=== PATIENT | female | born 1955 | race Caucasian/White ===

== ENCOUNTER 2020-07-28 14:38 | Outpatient (REF) | payer OTHER, SELFPAY ==
--- NOTE | 2020-07-28 14:44 | XR_ITS ---
EXAMINATION: XR CHEST CLINICAL INFORMATION: R06.02 - Shortness of breath COMPARISON: None TECHNIQUE: 2 views of the chest were obtained. FINDINGS: There is coarsening of the bronchovascular markings. Subtle groundglass opacities are suspected right suprahilar region. There is no lobar or segmental airspace consolidation or effusion. The heart is normal in size. The hilar and mediastinal contours are normal. There are degenerative changes thoracic spine. Results discussed with Dr. Gayle at 1500 hours. XR/XR chest 2V IMPRESSION: 1. Coarsening bronchovascular markings with suspicion of right suprahilar groundglass opacities. Findings may be related to early atypical pneumonia or viral process. 2. No lobar or segmental airspace consolidation or effusion.
== END 2020-07-28 14:39 | disposition home or self-care (01) ==
LOC: HO.HMGCX 14:38
PROVIDERS: PCP Internal Medicine; Visit Provider Hospitalist
DX: R06.02 Shortness of breath (principal)
CPT/HCPCS: 71046

== ENCOUNTER 2020-11-10 10:00 | Outpatient (REF) | payer OTHER, SELFPAY ==
[2020-11-10 11:57] LABS: Hematocrit 42.6 % (37-47); Hemoglobin 14.1 g/dl (12.0-16.0); Mean Corpuscular HGB Conc 33.1 g/dl (31.0-35.0); Mean Corpuscular Hemoglobin 29.8 pg (27.0-33.0); Mean Corpuscular Volume 90.1 fL (80-98); Mean Platelet Volume 8.9 fL (9.4-12.3); Platelet Count 217 X10*3/uL (160-400); Red Blood Count 4.73 X10*6/uL (4.20-5.50); Red Cell Distribution Width 12.4 % (11.0-16.0); White Blood Count 5.1 X10*3/uL (4.8-10.8)
[2020-11-10 12:10] LABS: Glucose Urine UA NEG (NEG); Leukocyte Esterase Urine NEG (NEG); Nitrite Urine NEG (NEG); PH 7.5 (5.0-8.0); Urine Blood NEG (NEG); Urine Ketones NEG (NEG); Urine Protein NEG (NEG-TRACE)
[2020-11-10 12:18] LABS: Appearance Urine CLEAR; Color Urine YELLOW
[2020-11-10 12:20] LABS: Alanine Aminotransferase 19 U/L (0-31); Albumin Level 4.2 g/dL (3.5-5.0); Alkaline Phosphatase 81 U/L (39-117); Anion Gap 9 (12-20); Aspartate Amino Transferase 20 U/L (5-31); Bilirubin Total 0.7 mg/dL (0.0-1.0); Blood Urea Nitrogen 16 mg/dL (9-16); Calcium 8.9 mg/dL (8.4-10.2); Carbon Dioxide 30 mmol/L (22-29); Chloride 106 mmol/L (96-108); Cholesterol 225 mg/dL; Estimated Glomerular Filt Rate > 60; Glucose Fasting 96 mg/dL (60-99); HDL Cholesterol 68 mg/dL; LDL Cholesterol Calculated 134 mg/dl; Sodium 141 mmol/L (135-145); Total Protein 6.8 g/dL (6.5-8.0); Triglycerides 118 mg/dL
[2020-11-10 13:52] LABS: TSH reflex Free T4 1.46 uIU/mL (0.32-4.0)
[2020-11-10 14:19] LABS: RBC Urine 0 /HPF (0); WBC Urine 0-2 /HPF (0-4)
== END 2020-11-10 10:01 | disposition home or self-care (01) ==
LOC: HO.HMGCLDS 10:00
PROVIDERS: PCP Internal Medicine; Visit Provider Internal Medicine
DX: Z00.00 Encounter for general adult medical examination without abnormal findings (principal); J18.9 Pneumonia, unspecified organism; I10 Essential (primary) hypertension
CPT/HCPCS: 36415; 80053; 80061; 81001; 84443; 85027

== ENCOUNTER 2022-06-08 14:29 | Outpatient (REF) | payer OTHER, SELFPAY ==
[2022-06-08 16:14] LABS: Influenza A PCR NEGATIVE (Negative); Influenza B PCR NEGATIVE (Negative); Resp Syncy Virus RNA Qual PCR NEGATIVE (Negative); SARS COV2 PCR INHOUSE NEGATIVE (Negative)
== END 2022-06-08 14:30 | disposition home or self-care (01) ==
LOC: HO.LAB 14:29
PROVIDERS: Visit Provider Nurse Practitioner Acute Care
DX: R68.89 Other general symptoms and signs (principal); Z20.822 Contact with and (suspected) exposure to COVID-19
CPT/HCPCS: 0241U

== ENCOUNTER 2022-06-11 16:20 | Outpatient (REF) | payer OTHER, SELFPAY ==
--- NOTE | ~2022-06-11 | XR_ITS ---
EXAMINATION: XR CHEST CLINICAL INFORMATION: Cough. COMPARISON: 07/28/2020 TECHNIQUE: 2 views of the chest were obtained. FINDINGS: The lungs are well expanded. There is no focal consolidation, edema, or effusion. No pneumothorax. The cardiomediastinal silhouette is within normal limits. No acute osseous abnormality. XR/XR chest 2V IMPRESSION: Clear lungs.
== END 2022-06-11 16:21 | disposition home or self-care (01) ==
LOC: HO.HMGCX 16:20
PROVIDERS: PCP Internal Medicine; Visit Provider Internal Medicine
DX: R05.9 Cough, unspecified (principal)
CPT/HCPCS: 71046

== ENCOUNTER 2022-06-29 09:29 | Outpatient (REF) | payer OTHER, SELFPAY ==
[2022-06-29 11:10] LABS: MANUAL DIFF FLAG NO
[2022-06-29 11:19] LABS: Basophils Percent Auto 0.9 % (0-2); Eosinophils Absolute Auto 0.2 X10*3/uL (0.0-0.4); Eosinophils Percent Auto 3.4 % (0-4); Hematocrit 41.4 % (37.0-47.0); Hemoglobin 14.2 g/dl (12.0-16.0); Imm Gran Abs Auto 0.02 X10*3/uL (0.00-0.03); Imm Gran Pct Auto 0.5 % (0.0-0.4); Lymphocytes Percent Auto 46.2 % (20-40); Mean Corpuscular HGB Conc 34.3 g/dl (31.0-35.0); Mean Corpuscular Hemoglobin 30.9 pg (27.0-33.0); Mean Corpuscular Volume 90.2 fL (80.0-98.0); Mean Platelet Volume 8.8 fL (9.4-12.3); Monocytes Absolute Auto 0.4 X10*3/uL (0.1-1.2); Monocytes Percent Auto 8.2 % (2-11); Neutrophils Absolute Auto 1.8 x10*3/uL (2.0-8.3); Neutrophils Percent Auto 40.8 % (45-73); Platelet Count 212 X10*3/uL (160-400); Red Blood Count 4.59 X10*6/uL (4.20-5.50); Red Cell Distribution Width 11.7 % (11.0-16.0); White Blood Count 4.4 X10*3/uL (4.8-10.8)
[2022-06-29 11:37] LABS: Appearance Urine Clear; Color Urine Yellow; Glucose Urine UA Negative (Negative); Leukocyte Esterase Urine Trace (Negative); Nitrite Urine Negative (Negative); PH 8.5 (5.0-9.0); Specific Gravity - Urine 1.015 (1.005-1.025); UMIC TRIGGER UA YES; Urine Blood Negative (Negative); Urine Ketones Negative (Negative); Urine Protein Negative (Neg-Trace)
[2022-06-29 11:38] LABS: Alanine Aminotransferase 21 U/L (0-31); Albumin Level 4.3 g/dL (3.5-5.0); Alkaline Phosphatase 77 U/L (39-117); Anion Gap 14 (12-20); Aspartate Amino Transferase 21 U/L (5-31); Bilirubin Total 0.8 mg/dL (0.0-1.0); Blood Urea Nitrogen 15 mg/dL (9-16); Calcium 9.3 mg/dL (8.4-10.2); Carbon Dioxide 25 mmol/L (22-29); Chloride 107 mmol/L (96-108); Cholesterol 226 mg/dL; Estimated Glomerular Filt Rate > 60; Glucose Fasting 103 mg/dL (60-99); HDL Cholesterol 62 mg/dL; LDL Cholesterol Calculated 145 mg/dl; Potassium 4.1 mmol/L (3.3-5.1); Sodium 142 mmol/L (135-145); Total Protein 6.8 g/dL (6.5-8.0); Triglycerides 97 mg/dL
[2022-06-29 11:42] LABS: Bacteria Urine None Seen (None Seen); Hyaline Casts Urine 0-2 /LPF (0-2); RBC Urine 0-2 /HPF (0-2); Squamous Epithelial Cell Urine 0-2 /HPF (0-2); WBC Urine 0-5 /HPF (0-5)
[2022-06-29 11:59] LABS: TSH reflex Free T4 1.85 uIU/mL (0.32-4.0)
[2022-07-01 05:11] LABS: HBS Num1 23.07 mIU/mL (0-7.99); HBsAGNum1 0.18 S/CO (0.00-0.99); Hepatitis B Core Antibody Nonreactive (Nonreactive); Hepatitis B Surface Antigen Negative (Negative); ~Hepatitis B Surface Antibody REACTIVE (Nonreactive)
[2022-07-01 14:12] LABS: Alpha Fetoprotein 1.8 ng/mL
[2022-07-02 21:48] LABS: Hepatitis BE Antibody NON-REACTIVE (NON-REACTIVE)
[2022-07-03 21:07] LABS: Hepatitis B Viral DNA Qn - cp <1.00 NOT DETECTED Log IU/mL (NOT DETECTED); Hepatitis B Viral DNA Qn-IU/mL <10 NOT DETECTED IU/mL (NOT DETECTED)
== END 2022-06-29 09:30 | disposition home or self-care (01) ==
LOC: HO.HMGCLDS 09:29
PROVIDERS: PCP Internal Medicine; Visit Provider Internal Medicine
DX: Z00.00 Encounter for general adult medical examination without abnormal findings (principal); I10 Essential (primary) hypertension
CPT/HCPCS: 36415; 80053; 80061; 81001; 82105; 84443; 85025; 86704; 86706; 86707; 87340; 87517

== ENCOUNTER 2023-05-14 12:45 | Outpatient (AMB) | payer OTHER, SELFPAY ==
[2023-05-14 12:49] VITALS: BP 132/74; PULSE 81; O2SAT 98; BMI 30.7
--- NOTE | 2023-05-14 12:49 | A.OFFPC_ITS ---
Vital Signs 05/14/23 12:49 Height 5 ft 6 in Weight 190 lb BMI 30.7 BP 132/74 Blood Pressure Location Lt brachial Position Sitting Pulse 81 Pulse Source Pulse Oximeter Pulse Oximetry (%) 98 Oxygen Delivery Method Room Air Intake Visit Reasons: Elevated BP Intake Note: Pt is here today for a follow up after being seen in a walk in clinic after a fall at work.Pt states that right after a fall her BP was 171/94. Pt states that her BP has been elevated. Pt also c/o headaches. Allergies No Known Allergies Allergy (Verified 05/14/23 12:50) Medication List - Last Reconciled 05/14/23 by Zoya Gaitan MD albuterol sulfate 90 mcg/actuation 2 puffs inhalation Q6H PRN albuterol sulfate 2.5 mg (3 mL) inhalation Q6H PRN amlodipine 2.5 mg PO DAILY Tobacco use date assessed: 05/14/23 Fall risk assessment: No Falls in past year Last assessed Fall Risk: 05/14/23 Dental Screening Dental Screen Date: 05/14/23 Did you have a dental visit in the last 12 months?: Yes Did you have a dental problem in the last 6 months where you did not have access to dental care?: No Was dental information given to patient?: Patient has dentist HPI Elevated BP HPI Details Pt presents for f/u UC visit. She tripped and fell down at work on 05/05. Pt denies head trauma or LOC. She reports intermittent [place] and elevated BP up to 170/90. Pt has been under a lot of stress at work for the last few weeks. She has been taking amlodipine every day. [facility] Medical History Allergic rhinitis Annual physical exam COVID-19 GERD (gastroesophageal reflux disease) HTN (hypertension) Surgical History H/O colonoscopy No pertinent past surgical history Family History Father Diabetes mellitus Mother No problems noted. Social History Housing: House Alcohol intake: current Alcohol intake frequency: holidays/special occasions only Patient Tobacco Use Status: Never used Tobacco e-Cigarette/Vaping Use: Never Used Second Hand Smoke Exposure: No Current occupational status: employed Cognitive needs: No Hearing needs: No Vision needs: Yes Questionnaire PHQ-9 Over the last 2 weeks, how often have you been bothered by any of the following problems? 1. Little interest or pleasure in doing things: not at all 2. Feeling down, depressed, or hopeless: not at all 3. Trouble falling or staying asleep, or sleeping too much: not at all 4. Feeling tired or having little energy: not at all 5. Poor appetite or overeating: not at all 6. Feeling bad about yourself - or that you are a failure or have let yourself or your family down: not at all 7. Trouble concentrating on things, such as reading the newspaper or watching television: not at all 8. Moving or speaking so slowly that other people could have noticed. Or the opposite - being so fidgety or restless that you have been moving around a lot more than usual: not at all 9. Thoughts that you would be better off or of hurting yourself in some way: not at all Total score: 0 Depression Screening Interpretation: Negative Source: Developed by Drs. Brian Sood, Meena Richmond, Juilus Lewis and colleagues, with an educational matias from [employer]. Thrive Questionnaire Date Thrive assessed: 05/14/23 I am a: Patient What is your living situation today?: I have a steady place to live Within the past 12 months, did the food you bought not last and you didn't have the money to get more?: Never true Within the past 12 months, did you worry whether your food would run out before you got money to buy more?: Never true Do you have trouble paying for medicines?: No Do you have trouble getting transportation to medical appointments?: No Do you have trouble paying your heating and electricity bill?: No Do you have trouble taking care of your child, family member or friend?: No Do you have trouble with day-to-day activities such as bathing, preparing meals, shopping, managing finances, etc.?: No Are you currently unemployed and looking for a job?: No Are you interested in more education?: No Please select the resources that you would like help with: None Currently or been in a relationship where the following occur: no concerns reported AUDIT C Alcohol Use Questionnaire (AUDIT-C) 1. How often do you have a drink containing alcohol?: Monthly or less 2. How many drinks containing alcohol do you have on a typical day when you are drinking?: 1 or 2 3. How often do you have six or more drinks on one occasion?: Never Total Score: 1 PREETHI-7 AMB Questionnaire PREETHI-7 Date RPEETHI - 7 assessed: 05/14/23 Feeling nervous, anxious, or on edge: 0 = Not at all Not being able to stop or control worryin = Not at all Worrying too much about different things: 0 = Not at all Trouble relaxin = Not at all Being so restless that it is hard to sit still: 0 = Not at all Becoming easily annoyed or irritable: 0 = Not at all Feeling afraid as if something awful might happen: 0 = Not at all Total PREETHI-7 score (0-4 normal; 5-9 mild; 10-14 moderate; 15-21 severe): 0 Source: Developed by Drs. Brian Sood, Meena Richmond, Julius Lewis and colleagues, with an educational matias from [employer]. Review of Systems Const All systems reviewed & are unremarkable except as noted in HPI and below Reports no additional complaints Eyes Reports no additional complaints ENT Reports no additional complaints Card Reports no additional complaints Resp Reports no additional complaints GI Reports no additional complaints Reports no additional complaints Physical exam (Primary Care) Vital Signs: Last Vital Signs Pulse 81 05/14/23 12:49 BP 132/74 05/14/23 12:49 Pulse Ox 98 05/14/23 12:49 Oxygen Delivery Method Room Air 05/14/23 12:49 BMI result Body Mass Index 30.7 Tobacco/Smoking Status: Tobacco use Status Tobacco use date assessed 05/14/23 05/14/23 12:51 Patient Tobacco Use Status Never used Tobacco 05/14/23 12:51 e-Cigarette/Vaping Use Never Used 05/14/23 12:51 PHQ-9: PHQ-9 Score PHQ-9: Total score 0 05/14/23 13:25 Depression Screening Interpretation: Negative Thrive Assessment: Date of Thrive Assessment Date Thrive assessed 09/20/23 09/20/23 12:59 Currently or been in a relationship where the following occur: no concerns reported Const General: no acute distress Eyes General: appearance normal, both eyes and all related structures Resp Effort & Inspection: normal respiratory effort Auscultation: clear to auscultation bilaterally Cardio Rhythm: regular rhythm Heart sounds: S1 normal heart sound present, S2 normal heart sound present and Murmur heart sound present systolic II/ GI Inspection: Yes normal to inspection Palpation (GI): Soft to palpation Percussion: Yes normal to percussion Assessment and Plan Assessment & Plan (1) HTN (hypertension): Code(s): I10 - Essential (primary) hypertension Plan: Increase amlodipine to 2.5 mg twice a day. Patient was advise to follow low sodium diet and stress management discussed with the patient. She will return in 1 week for blood pressure check (2) SAMANO (dyspnea on exertion): Code(s): R06.09 - Other forms of dyspnea Plan: Obtain echocardiogram Orders: Orders CA echo transthoracic complete Today I10 - Essential (primary) hypertension, R06.09 - Other forms of dyspnea Complete Blood Count Auto Diff Today I10 - Essential (primary) hypertension TSH reflex Free T4 Today I10 - Essential (primary) hypertension Comprehensive Met. Panel Today I10 - Essential (primary) hypertension Coding Level of Care Code Est Pt Level 3 (32468) Diagnoses HTN (hypertension) I10 SAMANO (dyspnea on exertion) R06.09
== END 2023-05-14 13:40 | disposition home or self-care (01) ==
PROVIDERS: PCP Internal Medicine; Visit Provider Internal Medicine
DX: I10 Essential (primary) hypertension (principal); R06.09 Other forms of dyspnea
CPT/HCPCS: 99213

== ENCOUNTER 2023-05-14 13:39 | Outpatient (REF) | payer OTHER, SELFPAY ==
[2023-05-14 16:16] LABS: MANUAL DIFF FLAG NO
[2023-05-14 16:18] LABS: Basophils Absolute Auto 0.1 X10*3/uL (0.0-0.2); Basophils Percent Auto 0.7 % (0-2); Eosinophils Absolute Auto 0.1 X10*3/uL (0.0-0.4); Eosinophils Percent Auto 1.8 % (0-4); Hemoglobin 14.7 g/dl (12.0-16.0); Imm Gran Abs Auto 0.01 X10*3/uL (0.00-0.03); Imm Gran Pct Auto 0.1 % (0.0-0.4); Lymphocytes Absolute Auto 2.7 X10*3/uL (1.2-4.9); Lymphocytes Percent Auto 37.8 % (20-40); Mean Corpuscular Hemoglobin 31.1 pg (27.0-33.0); Mean Platelet Volume 8.8 fL (9.4-12.3); Monocytes Absolute Auto 0.6 X10*3/uL (0.1-1.2); Monocytes Percent Auto 8.4 % (2-11); Neutrophils Absolute Auto 3.6 x10*3/uL (2.0-8.3); Neutrophils Percent Auto 51.2 % (45-73); Platelet Count 252 X10*3/uL (160-400); Red Blood Count 4.72 X10*6/uL (4.20-5.50); Red Cell Distribution Width 11.9 % (11.0-16.0)
[2023-05-14 16:41] LABS: Alanine Aminotransferase 21 U/L (0-31); Albumin Level 4.4 g/dL (3.5-5.0); Alkaline Phosphatase 88 U/L (39-117); Anion Gap 10 (12-20); Aspartate Amino Transferase 21 U/L (5-31); Bilirubin Total 0.5 mg/dL (0.0-1.0); Blood Urea Nitrogen 16 mg/dL (9-16); Calcium 10.4 mg/dL (8.4-10.2); Carbon Dioxide 27 mmol/L (22-29); Chloride 108 mmol/L (96-108); Estimated Glomerular Filt Rate > 60; Glucose Random 95 mg/dL (60-115); Sodium 141 mmol/L (135-145); Total Protein 7.2 g/dL (6.5-8.0)
[2023-05-14 16:57] LABS: TSH reflex Free T4 2.39 uIU/mL (0.32-4.0)
== END 2023-05-14 13:40 | disposition home or self-care (01) ==
LOC: HO.HMGCLDS 13:39
PROVIDERS: PCP Internal Medicine; Visit Provider Internal Medicine
DX: I10 Essential (primary) hypertension (principal)
CPT/HCPCS: 36415; 80053; 84443; 85025

== ENCOUNTER 2023-07-05 09:10 | Outpatient (REF) | payer OTHER, SELFPAY ==
[2023-07-05 12:02] LABS: MANUAL DIFF FLAG NO
[2023-07-05 12:12] LABS: Basophils Absolute Auto 0.1 X10*3/uL (0.0-0.2); Basophils Percent Auto 1.1 % (0-2); Eosinophils Absolute Auto 0.2 X10*3/uL (0.0-0.4); Eosinophils Percent Auto 3.3 % (0-4); Hematocrit 41.9 % (37.0-47.0); Hemoglobin 14.4 g/dl (12.0-16.0); Imm Gran Abs Auto 0.02 X10*3/uL (0.00-0.03); Imm Gran Pct Auto 0.4 % (0.0-0.4); Lymphocytes Absolute Auto 2.5 X10*3/uL (1.2-4.9); Lymphocytes Percent Auto 45.7 % (20-40); Mean Corpuscular HGB Conc 34.4 g/dl (31.0-35.0); Mean Corpuscular Hemoglobin 30.8 pg (27.0-33.0); Mean Corpuscular Volume 89.7 fL (80.0-98.0); Mean Platelet Volume 8.8 fL (9.4-12.3); Monocytes Absolute Auto 0.4 X10*3/uL (0.1-1.2); Monocytes Percent Auto 6.9 % (2-11); Neutrophils Absolute Auto 2.3 x10*3/uL (2.0-8.3); Neutrophils Percent Auto 42.6 % (45-73); Platelet Count 280 X10*3/uL (160-400); Red Blood Count 4.67 X10*6/uL (4.20-5.50); Red Cell Distribution Width 11.9 % (11.0-16.0); White Blood Count 5.5 X10*3/uL (4.8-10.8)
[2023-07-05 12:26] LABS: Appearance Urine Clear; Color Urine Yellow; Glucose Urine UA Negative (Negative); Leukocyte Esterase Urine Small (1+) (Negative); Nitrite Urine Negative (Negative); PH 7.5 (5.0-9.0); Specific Gravity - Urine 1.015 (1.005-1.025); UMIC TRIGGER UA YES; Urine Blood Negative (Negative); Urine Ketones Negative (Negative); Urine Protein Negative (Neg-Trace)
[2023-07-05 12:37] LABS: Alanine Aminotransferase 19 U/L (0-31); Albumin Level 4.3 g/dL (3.5-5.0); Alkaline Phosphatase 84 U/L (39-117); Anion Gap 10 (12-20); Aspartate Amino Transferase 20 U/L (5-31); Bilirubin Total 0.7 mg/dL (0.0-1.0); Blood Urea Nitrogen 16 mg/dL (9-16); Calcium 9.5 mg/dL (8.4-10.2); Carbon Dioxide 27 mmol/L (22-29); Chloride 106 mmol/L (96-108); Cholesterol 231 mg/dL (<200); Estimated Glomerular Filt Rate > 60; Glucose Fasting 96 mg/dL (60-99); HDL Cholesterol 67 mg/dL (>40); LDL Cholesterol Calculated 146 mg/dL (<100); Potassium 3.8 mmol/L (3.3-5.1); Sodium 139 mmol/L (135-145); Total Protein 7.2 g/dL (6.5-8.0); Triglycerides 90 mg/dL (<150)
[2023-07-05 12:50] LABS: Bacteria Urine None Seen (None Seen); Hyaline Casts Urine 0-2 /LPF (0-2); RBC Urine 0-2 /HPF (0-2); Squamous Epithelial Cell Urine 0-2 /HPF (0-2); WBC Urine 0-5 /HPF (0-5)
== END 2023-07-05 09:11 | disposition home or self-care (01) ==
LOC: HO.HMGCLDS 09:10
PROVIDERS: PCP Internal Medicine; Visit Provider Internal Medicine
DX: Z00.00 Encounter for general adult medical examination without abnormal findings (principal); I10 Essential (primary) hypertension; E78.5 Hyperlipidemia, unspecified
CPT/HCPCS: 36415; 80053; 80061; 81001; 82306; 85025

== ENCOUNTER → 2023-07-11 08:44 | Outpatient (REF) | payer OTHER, SELFPAY ==
--- NOTE | 2023-07-11 08:47 | CA_ITS ---
Transthoracic Echocardiogram Patient (Last, First, Middle): Xin Sarmiento, Gender: Female Date of : 1955 Age: 68 Procedure Date: 07/11/2023 Procedure Type: Transthoracic Echocardiogram Location: OP Height: 167.64 cm Weight: 90.72 kg BSA: 2.00 m2 Heart Rate: 65 bpm BP: 142 / 80 mmHg Sander Wooden Pencils: SB Referring MD: Zoya Gaitan MD Symptoms: I10 - Essential (primary) hypertension Study Quality: Adequate ECG Rhythm: Sinus Conclusions: - The left ventricular systolic function is hyperdynamic. The visually estimated ejection fraction is >70%. - There is moderate septal asymmetric hypertrophy. - No obvious valvular pathology seen on this study. Findings Left Ventricle Normal left ventricular cavity size. The left ventricular systolic function is hyperdynamic. The visually estimated ejection fraction is >70%. There is no evidence of regional wall motion abnormalities. Evidence suggests grade I (mild) diastolic dysfunction. There is moderate septal asymmetric hypertrophy. LVEF -20.7%. Right Ventricle Normal right ventricular cavity size and systolic function. Atria The left atrium is mildly dilated. The right atrium is normal in size. Aortic Valve There is a normal trileaflet aortic valve. There is no aortic valve stenosis. There is no aortic valve regurgitation. Mitral Valve There is mild posterior mitral leaflet thickening. There is no mitral valve regurgitation. There is no mitral valve stenosis. Pulmonic Valve The pulmonic valve is likely normal. Tricuspid Valve There is mild tricuspid valve regurgitation. There is no evidence of pulmonary hypertension. Great Vessels The asc aorta is normal in size. Venous The inferior vena cava is normal in size and collapses greater than 50% with inspiration. Pericardium/Pleural There is no evidence of pericardial effusion. Prior Study Comparison No prior study available for comparison. Recommendations, Care & Conclusions No obvious valvular pathology seen on this study. Measurements 2D Linear Measurements IVSd: 1.31 0.6-0.9/0.6-1.0 cm LVIDd: 4.67 3.9-5.3/4.2-5.9 cm LVIDd Index: 2.34 2.4-3.2/2.2-3.1 cm/m2 LVIDs: 2.27 2.0-3.6 cm LVPWd: 0.92 0.7-1.1 cm LA Diam: 3.80 2.7-3.8/3.0-4.0 cm LAIDs Index: 1.90 1.5-2.3 cm/m2 LV Mass: 235.28 67-162/88-224 g LV Mass Index: 117.64 43-95/49-115 g/m2 LVOT Diam: 2.00 3.0+(-)1.3 cm Mitral Valve MV Pk E: 0.63 MV PK A: 0.82 MV Decel Time: 241.00 E/A: 0.80 E'Lateral: 9.14 E'Medial: 5.00 E/E' Med: 12.70 E/E' Lat: 6.90 PHT: 71.00 MVA PHT: 3.10 Decel [place]: 2.63 Aortic Valve AoV Pk Flash: 1.96 AoV Mn Flash: 1.29 AoV VTI: 0.42 AoV Pk Grad: 15.00 Aov Mn Grad: 8.00 LOREN Cont.VTI: 3.11 LVOT LVOT Pk Flash: 1.88 LVOT Mn Flash: 1.24 LVOT VTI: 0.41 LVOT Pk Grad: 14.00 LVOT Mn Grad: 7.00 LVOT Diam: 2.00 LVOT Area: 3.14 Diastolic Function MV Pk E: 0.63 MV Pk A: 0.82 E/A: 0.80 E'Medial: 5.00 E/E' Med: 12.70 E' Laterial: 9.14 E/E' Lat: 6.90 Right Ventricle TAPSE (mm): 24.30 TVS' Flash: 17.20 Tricuspid Valve TR Pk Flash: 2.79 TR Pk Grad: 31.00 RA Press: 3.00 RVSP: 34.00 Great Vessels Aorta Sinus of Valsalva: 3.20 2.0-3.5 cm Ao Asc: 3.30 2.1-3.4 cm Pulmonary Valve PV Pk Flash: 1.06 Peak PV Grad: 4.00 Updated in Other Vendor System with Status of Final Adolph Quezada MD electronically signed on 07/12/2023 12:19:52 PM with status of Final
== END ==
LOC: HO.CARD 08:44
PROVIDERS: PCP Internal Medicine; Visit Provider Internal Medicine
DX: I10 Essential (primary) hypertension (principal); R06.09 Other forms of dyspnea
CPT/HCPCS: 93306; 93356

== ENCOUNTER → 2023-07-11 08:47 | Outpatient (BNV) | payer OTHER, SELFPAY | PROVIDERS: PCP Internal Medicine; Visit Provider Internal Medicine | DX: I36.1 Nonrheumatic tricuspid (valve) insufficiency (principal); I34.89 Other nonrheumatic mitral valve disorders | CPT/HCPCS: 93306 ==

== ENCOUNTER 2023-07-14 07:59 | Outpatient (AMB) | payer OTHER, SELFPAY ==
--- NOTE | 2023-07-14 08:06 | MHC.PC.OV ---
Vital Signs 07/14/23 08:08 Weight 195 lb 2 oz BP 122/74 Blood Pressure Location Rt brachial Position Sitting Pulse 60 Pulse Source Pulse Oximeter Pulse Oximetry (%) 98 Oxygen Delivery Method Room Air Intake Visit Reasons: Annual PE Allergies No Known Allergies Allergy (Verified 07/14/23 08:08) Medication List - Last Reconciled 07/14/23 by Zoya Gaitan MD albuterol sulfate 90 mcg/actuation 2 puffs inhalation Q6H PRN albuterol sulfate 2.5 mg (3 mL) inhalation Q6H PRN amlodipine 5 mg PO DAILY Tobacco use date assessed: 05/14/23 Fall risk assessment: No Falls in past year Last assessed Fall Risk: 07/14/23 Dental Screening Dental Screen Date: 07/14/23 Did you have a dental visit in the last 12 months?: Yes Did you have a dental problem in the last 6 months where you did not have access to dental care?: No Was dental information given to patient?: Patient has dentist HPI Annual PE HPI Details Pt presents for PE. PFSH Medical History Allergic rhinitis Annual physical exam GERD (gastroesophageal reflux disease) HTN (hypertension) COVID-19 Surgical History H/O colonoscopy No pertinent past surgical history Family History Father Diabetes mellitus Mother No problems noted. Social History Housing: House Alcohol intake: current Alcohol intake frequency: holidays/special occasions only Patient Tobacco Use Status: Never used Tobacco e-Cigarette/Vaping Use: Never Used Second Hand Smoke Exposure: No Current occupational status: employed Cognitive needs: No Hearing needs: No Vision needs: Yes Questionnaire Thrive Questionnaire Date Thrive assessed: 05/14/23 PREETHI-7 AMB Questionnaire PREETHI-7 Date PREETHI - 7 assessed: 05/14/23 Source: Developed by Drs. Brian Sood, Meena Richmond, Julius Lewis and colleagues, with an educational matias from [employer]. Review of Systems Const All systems reviewed & are unremarkable except as noted in HPI and below Reports no additional complaints Eyes Reports no additional complaints ENT Reports no additional complaints Card Reports no additional complaints Resp Reports no additional complaints GI Reports no additional complaints Reports no additional complaints Skin/Breast Reports system reviewed and no additional complaints, except as documented Physical exam (Primary Care) Vital Signs: Last Vital Signs Pulse 60 07/14/23 08:08 BP 122/74 07/14/23 08:08 Pulse Ox 98 07/14/23 08:08 Oxygen Delivery Method Room Air 07/14/23 08:08 Tobacco/Smoking Status: Tobacco use Status Tobacco use date assessed 05/14/23 07/14/23 08:10 Patient Tobacco Use Status Never used Tobacco 07/14/23 08:10 e-Cigarette/Vaping Use Never Used 07/14/23 08:10 Thrive Assessment: Date of Thrive Assessment Date Thrive assessed 05/14/23 07/14/23 08:10 Const General: no acute distress HENMT Head: Yes normal to inspection General nose exam: Normal external nose present Face and sinus: Yes normal facial exam Mouth: Normal oral and palatal mucosa present Throat: Yes posterior oropharynx normal Eyes General: appearance normal, both eyes and all related structures Neck Neck: Yes no lymphadenopathy and Yes supple Resp Effort & Inspection: normal respiratory effort Auscultation: clear to auscultation bilaterally Cardio Rhythm: regular rhythm Heart sounds: S1 normal heart sound present and S2 normal heart sound present GI Inspection: Yes normal to inspection Palpation (GI): Soft to palpation Percussion: Yes normal to percussion Auscultation: normal bowel sounds Assessment and Plan Assessment & Plan (1) HTN (hypertension): Code(s): I10 - Essential (primary) hypertension Plan: cont Amlodipine (2) Annual physical exam: Code(s): Z00.00 - Encounter for general adult medical examination without abnormal findings Plan: well balanced diet, regular exercise discussed, pt is up to date with mammogram and colonoscopy (3) Hyperlipidemia: Comment: pt refused statin Code(s): E78.5 - Hyperlipidemia, unspecified Plan: low cholesterol diet discussed, check CT coronary Ca score, f/u in 6 months Orders: Orders CT Coronary Calcium Score Today Lipid Panel 6 Months E78.5 - Hyperlipidemia, unspecified, I10 - Essential (primary) hypertension, Z00.00 - Encounter for general adult medical examination without abnormal findings Comprehensive [place]. Panel Fast 6 Months E78.5 - Hyperlipidemia, unspecified, I10 - Essential (primary) hypertension, Z00.00 - Encounter for general adult medical examination without abnormal findings Medications: Refilled amlodipine 5 mg PO DAILY 90 tabs 1RF Coding Level of Care Code Est Pt Prev Care >65y(97360) Diagnoses HTN (hypertension) I10 Annual physical exam Z00.00 Hyperlipidemia E78.5
[2023-07-14 08:08] VITALS: BP 122/74; PULSE 60; O2SAT 98
== END 2023-07-14 08:50 | disposition home or self-care (01) ==
PROVIDERS: Visit Provider Internal Medicine
DX: I10 Essential (primary) hypertension (principal); Z00.00 Encounter for general adult medical examination without abnormal findings; E78.5 Hyperlipidemia, unspecified
CPT/HCPCS: 99397

== ENCOUNTER 2023-10-04 11:45 | Outpatient (AMB) | payer OTHER, SELFPAY ==
--- NOTE | 2023-10-04 12:59 | AM.OFFWIN_ITS ---
Intake Vital Signs 10/04/23 13:05 Height 5 ft 6 in Weight 200 lb BMI 32.3 BP 120/76 Blood Pressure Location Rt brachial Position Sitting Pulse 78 Pulse Source Pulse Oximeter Temp 98.0 F Temp Source Oral Pulse Oximetry (%) 97 Oxygen Delivery Method Room Air Intake Visit Reasons: EST/sore throat ([phone]) Intake Note: Pt is here tdoay c/o nasal congestion and coughing x2days Patient Tobacco Use Status: Never used Tobacco Allergies No Known Allergies Allergy (Verified 10/04/23 13:00) HPI EST/sore throat ([phone]) HPI Details Patient is a 68-year-old female comes to the walk-in clinic complaining of a few days of drippy nose, cough, and now developing nasal congestion and pressure she states that she checked for COVID a few days in a row and has been negative. Her is the 1 that wanted her to be seen. She gives a history of severe COVID infection in the past, which is what worried her . 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 She does not need a work note. She denies fever chills, headache or dizziness or vertigo, weakness or myalgias, malaise, nausea vomiting or diarrhea, shortness of breath or chest discomfort, significant sore throat, chest congestion, blood with coughing, or other significant associated symptoms. [facility] Medical History Allergic rhinitis Annual physical exam GERD (gastroesophageal reflux disease) HTN (hypertension) COVID-19 Surgical History H/O colonoscopy No pertinent past surgical history Family History Father Diabetes mellitus Mother No problems noted. Social History Housing: House Alcohol intake: current Alcohol intake frequency: holidays/special occasions only Patient Tobacco Use Status: Never used Tobacco e-Cigarette/Vaping Use: Never Used Second Hand Smoke Exposure: No Current occupational status: employed Cognitive needs: No Hearing needs: No Vision needs: Yes Review of Systems Const All systems reviewed & are unremarkable except as noted in HPI and below Physical Exam Vital Signs: Last Vital Signs Temp 98.0 F 10/04/23 13:05 Pulse 78 10/04/23 13:05 BP 120/76 10/04/23 13:05 Pulse Ox 97 10/04/23 13:05 Oxygen Delivery Method Room Air 10/04/23 13:05 BMI result Body Mass Index 32.3 Const General: cooperative, healthy appearing, comfortable, no acute distress, alert, awake, Physically active and well groomed; No anxious, diaphoretic, intoxicated appearing, poor hygiene or tired appearing Nutritional Appearance: average body habitus Orientation/consciousness: oriented to person Limitations: no limitations HEENT Head: Yes normal to inspection, Yes normocephalic and Yes atraumatic Ears: hearing grossly normal bilaterally, external ears normal, TM's normal bilaterally and EAC's normal General nose exam: Normal external nose present, Abnormal mucous membranes and turbinates present and Nasal discharge present Face and sinus: Yes normal facial exam, Yes sinuses nontender and Yes face symmetric Mouth: Normal oral and palatal mucosa present, lip normal and tongue normal Throat: Yes uvula midline, Yes abnormal tonsil (mildly erythematous bilaterally), No peritonsillar mass, Yes posterior oropharynx abnormal, No postnasal drainage, No uvular edema and No cobblestoning Eyes General: appearance normal, both eyes and all related structures Neck Neck: Yes normal visual inspection, Yes full ROM, Yes no lymphadenopathy, Yes trachea midline, Yes supple and No anterior neck swelling Chest Chest palpation & inspection: normal palpation of entire chest wall Resp Effort & Inspection: normal respiratory effort, able to speak in complete sentences, no audible wheezes, no cough, no grunting, not labored, no nasal flaring, no retractions and symmetric chest movement Auscultation: clear to auscultation bilaterally, no crackles, no rales, no rhonchi, no wheezes, lung sounds not diminished and No rub present Cardio Palpation: normal PMI Rate: regular rate Rhythm: regular rhythm Heart sounds: S1 normal heart sound present and S2 normal heart sound present Skin Other: Good color, warm and dry Neuro General: oriented to person Psych Appearance: grossly normal Mental Status: mental status grossly normal Speech and movement: Normal speech and movement present Affect: normal affect Attitude: cooperative Thought process: Normal thought process present Insight: Good insight present (Psych) Judgement: Good judgement present (Psych) Assessment & Plan Assessment & Plan (1) Upper respiratory infection: Code(s): J06.9 - Acute upper respiratory infection, unspecified Qualifiers: URI type: unspecified URI Qualified Code(s): J06.9 - Acute upper respiratory infection, unspecified Plan: Patient with URI, pending results to rule out flu COVID and RSV. However she does not have a significant cough, and is afebrile and overall stable with just nasal congestion and mild cough being her main symptoms. We discussed supportive care and I wrote her for a course of benzonatate. She will follow up as needed if symptoms persist or worsen Orders: Orders SARS-CoV2/FLU/RSV 10/04/23 R05.9 - Cough, unspecified Medications: New benzonatate 200 mg PO BID-TID PRN 20 caps 0RF cough Coding Level of Care Code Est Pt Level 4 (05962) Diagnoses Upper respiratory tract infection, unspecified type J06.9 URI type: unspecified URI
[2023-10-04 13:05] VITALS: BP 120/76; PULSE 78; TEMP 36.7; O2SAT 97; BMI 32.3
== END 2023-10-04 13:57 | disposition home or self-care (01) ==
PROVIDERS: PCP Internal Medicine; Visit Provider Physician Assistant Medical
DX: J06.9 Acute upper respiratory infection, unspecified (principal)
CPT/HCPCS: 99051; 99214

== ENCOUNTER 2023-10-04 14:03 | Outpatient (REF) | payer OTHER, SELFPAY ==
[2023-10-04 15:55] LABS: Influenza A PCR NEGATIVE (Negative); Influenza B PCR NEGATIVE (Negative); Resp Syncy Virus RNA Qual PCR NEGATIVE (Negative); SARS COV2 PCR INHOUSE NEGATIVE (Negative)
== END 2023-10-04 14:04 | disposition home or self-care (01) ==
LOC: HO.LAB 14:03
PROVIDERS: Visit Provider Physician Assistant Medical
DX: Z11.52 Encounter for screening for COVID-19 (principal); Z20.822 Contact with and (suspected) exposure to COVID-19; R05.9 Cough, unspecified
CPT/HCPCS: 0241U

== ENCOUNTER 2023-12-11 13:02 | Outpatient (AMB) | payer OTHER, SELFPAY ==
--- NOTE | 2023-12-11 13:18 | A.OFFPC_ITS ---
Vital Signs 12/11/23 13:19 Height 5 ft 6 in Weight 196 lb BMI 31.6 BP 124/78 Blood Pressure Location Lt brachial Position Sitting Pulse 74 Pulse Source Pulse Oximeter Pulse Oximetry (%) 98 Oxygen Delivery Method Room Air Intake Visit Reasons: HTN followp Intake Note: Pt is here today for a follow up visit on HTN. Pt states that she has been having swelling in her ankles on and off. Allergies No Known Allergies Allergy (Verified 12/11/23 13:22) Medication List - Last Reconciled 12/11/23 by Zoya Gaitan MD amlodipine 5 mg PO DAILY Tobacco use date assessed: 12/11/23 Fall risk assessment: No Falls in past year Last assessed Fall Risk: 12/11/23 Dental Screening Dental Screen Date: 12/11/23 Did you have a dental visit in the last 12 months?: Yes Did you have a dental problem in the last 6 months where you did not have access to dental care?: No Was dental information given to patient?: Patient has dentist HPI HTN followp HPI Details Pt presents for f/u. Pt c/o chronic lower extremities swelling when sitting a lot with feet down or traveling for prolonged time, started after increasing the dose of amlodipine to 5 mg a day. Patient also reports dyspnea on exertion when walking uphill or up the stairs for the last few months. Patient denies chest pain palpitations PND orthopnea. She has not been taking medications for hyperlipidemia and is planning to schedule CD coronary calcium score. [facility] Medical History Allergic rhinitis Annual physical exam GERD (gastroesophageal reflux disease) HTN (hypertension) COVID-19 Surgical History H/O colonoscopy No pertinent past surgical history Family History Father Diabetes mellitus Mother No problems noted. Social History Housing: House Alcohol intake: current Alcohol intake frequency: holidays/special occasions only Patient Tobacco Use Status: Never used Tobacco e-Cigarette/Vaping Use: Never Used Second Hand Smoke Exposure: No service: No Current occupational status: employed Cognitive needs: No Hearing needs: No Vision needs: Yes Questionnaire Thrive Questionnaire Date Thrive assessed: 05/14/23 AUDIT C Alcohol Use Questionnaire (AUDIT-C) 1. How often do you have a drink containing alcohol?: Monthly or less 2. How many drinks containing alcohol do you have on a typical day when you are drinking?: 1 or 2 3. How often do you have six or more drinks on one occasion?: Never Total Score: 1 PREETHI-7 AMB Questionnaire PREETHI-7 Date PREETHI - 7 assessed: 05/14/23 Source: Developed by Drs. Brian Sood, Meena Richmond, Julius Lewis and colleagues, with an educational matias from [employer]. Review of Systems Const All systems reviewed & are unremarkable except as noted in HPI and below ENT Reports no additional complaints Card Reports no additional complaints Resp Reports no additional complaints GI Reports no additional complaints Reports no additional complaints Physical exam (Primary Care) Vital Signs: Last Vital Signs Pulse 74 12/11/23 13:19 BP 124/78 12/11/23 13:19 Pulse Ox 98 12/11/23 13:19 Oxygen Delivery Method Room Air 12/11/23 13:19 BMI result Body Mass Index 31.6 Tobacco/Smoking Status: Tobacco use Status Tobacco use date assessed 12/11/23 12/11/23 13:25 Patient Tobacco Use Status Never used Tobacco 12/11/23 13:25 e-Cigarette/Vaping Use Never Used 12/11/23 13:19 Thrive Assessment: Date of Thrive Assessment Date Thrive assessed 05/14/23 12/11/23 13:19 Const General: no acute distress HENMT Head: Yes normal to inspection Face and sinus: Yes normal facial exam Mouth: Normal oral and palatal mucosa present Eyes General: appearance normal, both eyes and all related structures Neck Neck: Yes supple Resp Effort & Inspection: normal respiratory effort Auscultation: clear to auscultation bilaterally Cardio Rhythm: regular rhythm Heart sounds: S1 normal heart sound present and S2 normal heart sound present GI Inspection: Yes normal to inspection Palpation (GI): Soft to palpation Auscultation: normal bowel sounds Extrem Other: Trace pitting edema bilaterally Assessment and Plan Assessment & Plan (1) HTN (hypertension): Code(s): I10 - Essential (primary) hypertension Plan: Patient developing is lower extremity swelling from 5 mg of amlodipine. Olmesartan 20 mg will be started instead in 1 month because patient is going to a trip to [facility] and does not want to change a medication before her trip. She was advised to have BMP checked 2 weeks after starting olmesartan and patient will follow-up in 2 months (2) Hyperlipidemia: Comment: pt refused statin Code(s): E78.5 - Hyperlipidemia, unspecified Plan: Patient will schedule CT coronary calcium score (3) SAMANO (dyspnea on exertion): Comment: Echo 07/17 nl EF, moderate septal asymmetric hypertrophy normal valves Code(s): R06.09 - Other forms of dyspnea Plan: For worsening dyspnea on exertion and risk factors including hypertension hyperlipidemia and age nuclear stress test will be scheduled to evaluate for ischemia (4) Anginal equivalent: Code(s): I20.89 - Other forms of angina pectoris Orders: Orders CA stress test Today I20.89 - Other forms of angina pectoris, R06.09 - Other forms of dyspnea NM cardiolite stress test Today I20.89 - Other forms of angina pectoris, R06.09 - Other forms of dyspnea Basic Metabolic Panel 01/28/24 I10 - Essential (primary) hypertension Medications: New olmesartan 20 mg PO DAILY 90 tabs 3RF Coding Level of Care Code Est Pt Level 4 (14722) Diagnoses HTN (hypertension) I10 Hyperlipidemia E78.5 SAMANO (dyspnea on exertion) R06.09 Anginal equivalent I20.89
[2023-12-11 13:19] VITALS: BP 124/78; PULSE 74; O2SAT 98; BMI 31.6
== END 2023-12-11 15:26 | disposition home or self-care (01) ==
PROVIDERS: PCP Internal Medicine; Visit Provider Internal Medicine
DX: I10 Essential (primary) hypertension (principal); E78.5 Hyperlipidemia, unspecified; R06.09 Other forms of dyspnea; I20.89 Other forms of angina pectoris
CPT/HCPCS: 99214

== ENCOUNTER → 2023-12-19 07:41 | Outpatient (REF) | payer OTHER, SELFPAY ==
--- NOTE | ~2023-12-19 | NM_ITS ---
Exercise Myocardial perfusion study Indication: Angina to evaluate for myocardial ischemia Technique: The patient was brought in for an exercise perfusion study on 12/19/2023. Patient performed exercise as per Mark protocol and was injected 30 mCi of sestamibi was given intravenously one target HR was achieved. Images were obtained using the SPECT gamma camera interlaced with the gating device. Images were obtained in supine position. Resting perfusion study was performed on 12/22/2023. Patient was administered 30 mCi of sestamibi intravenously at rest. Images were then obtained in supine position. Images obtained with and without CT attenuation. Total DLP 100 mGy-cm. Images were processed with the software and compared side to side in short axis, horizontal long axis and vertical long axis views. Findings: The stress perfusion study showed both attenuated as well as non corrected images show normal uptake of radiotracer in all of LV myocardium. The gated study shows normal LV systolic function with calculated LVEF of 73%. LV cavity is normal in size. The gated study shows normal systolic wall thickening and contraction of all segments. There is no transient ischemic dilation. Resting study shows no change in perfusion pattern compared to stress perfusion study. Gating at rest reveals normal systolic wall motion with ejection fraction at 66%. The findings are consistent with normal myocardial perfusion. NM/NM cardiolite stress test Impression: 1. Normal myocardial perfusion 2. Gated LVEF is 73% 3. Transient ischemic dilatation not present Stress EKG is negative for ischemia
--- NOTE | 2023-12-19 07:43 | CA_ITS ---
Acquisition Time: 2023-12-19 07:48:33 Total Exercise Time: 00:06:45 Test Indications: SOB Medications: SEE H Protocol: QUIQUE Max HR: 134 BPM 87% of Pred: 153 BPM Max BP: 188/078 mmHG Max Work Load: 8.1 METS Exercise stress test exercise 6 min 45 sec of Quique protocol achieving 87% MPHR, with mild to moderate SOB, no chest discomfort, with isolated PACs, with normotensive response to exercise, without EKG changes. Breathing returned to normal. Nuclear images pending. Test reviewed with Dr. Gomez Referred By: Zoya Gaitan Overread By: Rosa Hodge
== END ==
LOC: HO.CARD 07:41
PROVIDERS: PCP Internal Medicine; Visit Provider Internal Medicine
DX: I20.89 Other forms of angina pectoris (principal); R06.09 Other forms of dyspnea
CPT/HCPCS: 78452; 93017; A9500

== ENCOUNTER → 2023-12-19 07:59 | Outpatient (BNV) | payer OTHER, SELFPAY | PROVIDERS: PCP Internal Medicine; Visit Provider Internal Medicine Cardiovascular Disease | DX: R06.02 Shortness of breath (principal); I49.1 Atrial premature depolarization; I20.9 Angina pectoris, unspecified | CPT/HCPCS: 78452; 93016; 93018 ==

== ENCOUNTER 2024-01-29 07:47 | Outpatient (AMB) | payer OTHER, SELFPAY ==
[2024-01-29 08:05] VITALS: BP 130/76; PULSE 76; O2SAT 97; BMI 32.0
--- NOTE | 2024-01-29 08:05 | A.OFFPC_ITS ---
Vital Signs 01/29/24 08:05 Height 5 ft 6 in Weight 198 lb BMI 32.0 BP 130/76 Blood Pressure Location Lt brachial Position Sitting Pulse 76 Pulse Source Pulse Oximeter Pulse Oximetry (%) 97 Oxygen Delivery Method Room Air Intake Visit Reasons: 6 Month F/U Intake Note: Pt is here today for 6 months follow up visit. Allergies Lisinopril Adverse Reaction (Intermediate, Uncoded 01/29/24 09:02) Cough Medication List - Last Reconciled 01/29/24 by Zoya Gaitan MD amlodipine 5 mg PO DAILY Tobacco use date assessed: 01/29/24 Dental Screening Dental Screen Date: 12/11/23 HPI 6 Month F/U HPI Details Pt presents for f/u HTN. Pt just came back from [place] 1 week ago. She did not change amlodipine to olmesartan because she was concerned about side effects she read on Internet and a very high krishna of olmesartan when she change her insurance to Medicare in 2 years. [facility] Medical History (Updated 01/29/24 @ 09:02 by Zoya Gaitan MD) Allergic rhinitis Annual physical exam GERD (gastroesophageal reflux disease) HTN (hypertension) COVID-19 Surgical History H/O colonoscopy No pertinent past surgical history Family History Father Diabetes mellitus Mother No problems noted. Social History Housing: House Alcohol intake: current Alcohol intake frequency: holidays/special occasions only Patient Tobacco Use Status: Never used Tobacco e-Cigarette/Vaping Use: Never Used Second Hand Smoke Exposure: No service: No Current occupational status: employed Cognitive needs: No Hearing needs: No Vision needs: Yes Questionnaire PHQ-9 Over the last 2 weeks, how often have you been bothered by any of the following problems? 1. Little interest or pleasure in doing things: not at all 2. Feeling down, depressed, or hopeless: not at all 3. Trouble falling or staying asleep, or sleeping too much: not at all 4. Feeling tired or having little energy: not at all 5. Poor appetite or overeating: not at all 6. Feeling bad about yourself - or that you are a failure or have let yourself or your family down: not at all 7. Trouble concentrating on things, such as reading the newspaper or watching television: not at all 8. Moving or speaking so slowly that other people could have noticed. Or the opposite - being so fidgety or restless that you have been moving around a lot more than usual: not at all 9. Thoughts that you would be better off or of hurting yourself in some way: not at all Total score: 0 Depression Screening Interpretation: Negative Depression Screening Done: Yes Source: Developed by Drs. Brian Sood, Meena Richmond, Julius Lewis and colleagues, with an educational matias from [employer]. Thrive Questionnaire Date Thrive assessed: 01/29/24 I am a: Patient What is your living situation today?: I have a steady place to live Within the past 12 months, did the food you bought not last and you didn't have the money to get more?: Never true Within the past 12 months, did you worry whether your food would run out before you got money to buy more?: Never true Do you have trouble paying for medicines?: No Do you have trouble getting transportation to medical appointments?: No Do you have trouble paying your heating and electricity bill?: No Do you have trouble taking care of your child, family member or friend?: No Do you have trouble with day-to-day activities such as bathing, preparing meals, shopping, managing finances, etc.?: No Are you currently unemployed and looking for a job?: No Are you interested in more education?: No Please select the resources that you would like help with: None THRIVE Score: 0 PREETHI-7 AMB Questionnaire PREETHI-7 Date PREETHI - 7 assessed: 01/29/24 Feeling nervous, anxious, or on edge: 0 = Not at all Not being able to stop or control worryin = Not at all Worrying too much about different things: 0 = Not at all Trouble relaxin = Not at all Being so restless that it is hard to sit still: 0 = Not at all Becoming easily annoyed or irritable: 0 = Not at all Feeling afraid as if something awful might happen: 0 = Not at all Total PREETHI-7 score (0-4 normal; 5-9 mild; 10-14 moderate; 15-21 severe): 0 Source: Developed by Drs. Brian Sood, Meena Richmond, Julius Lewis and colleagues, with an educational matias from [employer]. Review of Systems Const All systems reviewed & are unremarkable except as noted in HPI and below Eyes Reports no additional complaints ENT Reports no additional complaints Card Reports no additional complaints Resp Reports no additional complaints GI Reports no additional complaints Reports no additional complaints Physical exam (Primary Care) Vital Signs: Last Vital Signs Pulse 76 01/29/24 08:05 BP 130/76 01/29/24 08:05 Pulse Ox 97 01/29/24 08:05 Oxygen Delivery Method Room Air 01/29/24 08:05 BMI result Body Mass Index 32.0 Tobacco/Smoking Status: Tobacco use Status Tobacco use date assessed 01/29/24 01/29/24 08:14 Patient Tobacco Use Status Never used Tobacco 01/29/24 08:10 e-Cigarette/Vaping Use Never Used 01/29/24 08:10 PHQ-9: PHQ-9 Score PHQ-9: Total score 0 01/29/24 08:26 Depression Screening Interpretation: Negative Thrive Assessment: Date of Thrive Assessment Date Thrive assessed 01/29/24 01/29/24 08:14 Const General: no acute distress HENMT Head: Yes normal to inspection Throat: Yes posterior oropharynx normal Eyes General: appearance normal, both eyes and all related structures Neck Neck: Yes no lymphadenopathy and Yes supple Resp Effort & Inspection: normal respiratory effort Auscultation: clear to auscultation bilaterally Cardio Rhythm: regular rhythm Heart sounds: S1 normal heart sound present and S2 normal heart sound present GI Inspection: Yes normal to inspection Palpation (GI): Soft to palpation Percussion: Yes normal to percussion Auscultation: normal bowel sounds Assessment and Plan Assessment & Plan (1) HTN (hypertension): Comment: Lisinopril caused cough Code(s): I10 - Essential (primary) hypertension Plan: Patient will continue amlodipine for now. She is going to check with her insurance formulary prices of different sartans (2) Hyperlipidemia: Comment: pt refused statin Code(s): E78.5 - Hyperlipidemia, unspecified Plan: Continue low-cholesterol diet patient is waiting for CT calcium score to be approved by insurance. She will return for physical in June with a fasting labs before Orders: Orders TSH reflex Free T4 5 Months E78.5 - Hyperlipidemia, unspecified, I10 - Essential (primary) hypertension Comprehensive [place]. Panel Fast 5 Months E78.5 - Hyperlipidemia, unspecified, I10 - Essential (primary) hypertension Complete Blood Count Auto Diff 5 Months E78.5 - Hyperlipidemia, unspecified, I10 - Essential (primary) hypertension Lipid Panel 5 Months E78.5 - Hyperlipidemia, unspecified, I10 - Essential (prim kvng) hypertension Medications: Discontinued olmesartan Discontinued Reason: Doctor's Order 20 mg PO DAILY 90 tabs 3RF Coding Level of Care Code Est Pt Level 3 (59039) Diagnoses HTN (hypertension) I10 Hyperlipidemia E78.5
== END 2024-01-29 08:46 | disposition home or self-care (01) ==
PROVIDERS: PCP Internal Medicine; Visit Provider Internal Medicine
DX: I10 Essential (primary) hypertension (principal); E78.5 Hyperlipidemia, unspecified
CPT/HCPCS: 99213

== ENCOUNTER 2024-07-10 10:03 | Outpatient (REF) | payer OTHER, SELFPAY ==
[2024-07-10 11:12] LABS: MANUAL DIFF FLAG NO
[2024-07-10 11:30] LABS: Basophils Absolute Auto 0.1 X10*3/uL (0.0-0.2); Basophils Percent Auto 1.1 % (0-2); Eosinophils Absolute Auto 0.2 X10*3/uL (0.0-0.4); Eosinophils Percent Auto 4.7 % (0-4); Hemoglobin 14.5 g/dl (12.0-16.0); Imm Gran Abs Auto 0.01 X10*3/uL (0.00-0.03); Imm Gran Pct Auto 0.2 % (0.0-0.4); Lymphocytes Absolute Auto 2.2 X10*3/uL (1.2-4.9); Mean Corpuscular HGB Conc 34.5 g/dl (31.0-35.0); Mean Corpuscular Volume 89.9 fL (80.0-98.0); Mean Platelet Volume 8.8 fL (9.4-12.3); Monocytes Absolute Auto 0.4 X10*3/uL (0.1-1.2); Monocytes Percent Auto 9.2 % (2-11); Neutrophils Absolute Auto 1.8 x10*3/uL (2.0-8.3); Neutrophils Percent Auto 38.8 % (45-73); Platelet Count 229 X10*3/uL (160-400); Red Blood Count 4.67 X10*6/uL (4.20-5.50); White Blood Count 4.7 X10*3/uL (4.8-10.8)
[2024-07-10 11:48] LABS: Anion Gap 10 (12-20)
[2024-07-10 12:19] LABS: Alanine Aminotransferase 27 U/L (0-31); Albumin Level 4.2 g/dL (3.5-5.0); Alkaline Phosphatase 84 U/L (39-117); Aspartate Amino Transferase 25 U/L (5-31); Bilirubin Total 0.6 mg/dL (0.0-1.0); Blood Urea Nitrogen 15 mg/dL (9-16); Carbon Dioxide 28 mmol/L (22-29); Chloride 108 mmol/L (96-108); Cholesterol 197 mg/dL (<200); Estimated Glomerular Filt Rate > 60; Glucose Fasting 104 mg/dL (60-99); HDL Cholesterol 65 mg/dL (>40); LDL Cholesterol Calculated 116 mg/dL (<100); Potassium 4.3 mmol/L (3.3-5.1); Sodium 142 mmol/L (135-145); TSH reflex Free T4 1.65 uIU/mL (0.32-4.0); Total Protein 6.8 g/dL (6.5-8.0); Triglycerides 80 mg/dL (<150)
== END 2024-07-10 10:04 | disposition home or self-care (01) ==
LOC: HO.HMGCLDS 10:03
PROVIDERS: PCP Internal Medicine; Visit Provider Internal Medicine
DX: I10 Essential (primary) hypertension (principal); E78.5 Hyperlipidemia, unspecified
CPT/HCPCS: 36415; 80053; 80061; 84443; 85025

== ENCOUNTER 2024-07-19 07:56 | Outpatient (AMB) | payer OTHER, SELFPAY ==
[2024-07-19 08:07] VITALS: BP 124/78; PULSE 75; O2SAT 96; BMI 31.5
--- NOTE | 2024-07-19 08:07 | A.OFFPC_ITS ---
Vital Signs 07/19/24 08:07 Height 5 ft 6 in Weight 195 lb BMI 31.5 BP 124/78 Blood Pressure Location Lt brachial Position Sitting Pulse 75 Pulse Source Pulse Oximeter Pulse Oximetry (%) 96 Oxygen Delivery Method Room Air Intake Visit Reasons: Annual PE Intake Note: Pt is here today for PE. Allergies Lisinopril Adverse Reaction (Intermediate, Uncoded 07/19/24 08:11) Cough Medication List - Last Reconciled 07/19/24 by Zoya Gaitan MD amlodipine 5 mg PO DAILY Tobacco use date assessed: 07/19/24 Fall risk assessment: No Falls in past year Last assessed Fall Risk: 07/19/24 Dental Screening Dental Screen Date: 12/11/23 HPI Annual PE HPI Details Pt presents for PE. [facility] Medical History (Updated 07/19/24 @ 08:38 by Zoya Gaitan MD) Allergic rhinitis Annual physical exam GERD (gastroesophageal reflux disease) HTN (hypertension) Surgical History H/O colonoscopy No pertinent past surgical history Family History Father Diabetes mellitus Mother No problems noted. Social History Housing: House Alcohol intake: current Alcohol intake frequency: holidays/special occasions only Patient Tobacco Use Status: Never used Tobacco e-Cigarette/Vaping Use: Never Used Second Hand Smoke Exposure: No service: No Current occupational status: employed Cognitive needs: No Hearing needs: No Vision needs: Yes Questionnaire PHQ-9 Over the last 2 weeks, how often have you been bothered by any of the following problems? 1. Little interest or pleasure in doing things: not at all 2. Feeling down, depressed, or hopeless: not at all 3. Trouble falling or staying asleep, or sleeping too much: not at all 4. Feeling tired or having little energy: not at all 5. Poor appetite or overeating: not at all 6. Feeling bad about yourself - or that you are a failure or have let yourself or your family down: not at all 7. Trouble concentrating on things, such as reading the newspaper or watching television: not at all 8. Moving or speaking so slowly that other people could have noticed. Or the opposite - being so fidgety or restless that you have been moving around a lot more than usual: not at all 9. Thoughts that you would be better off or of hurting yourself in some way: not at all Total score: 0 Depression Screening Interpretation: Negative Depression Screening Done: Yes 09796 - PHQ-9 Billing: Yes Source: Developed by Drs. Brian Sood, Meena Richmond, Julius Lewis and colleagues, with an educational matias from [employer]. Thrive Questionnaire Date Thrive assessed: 07/19/24 I am a: Patient What is your living situation today?: I have a steady place to live Within the past 12 months, did the food you bought not last and you didn't have the money to get more?: Never true Within the past 12 months, did you worry whether your food would run out before you got money to buy more?: Never true Do you have trouble paying for medicines?: No Do you have trouble getting transportation to medical appointments?: No Do you have trouble paying your heating and electricity bill?: No Do you have trouble taking care of your child, family member or friend?: No Do you have trouble with day-to-day activities such as bathing, preparing meals, shopping, managing finances, etc.?: No Are you currently unemployed and looking for a job?: No Are you interested in more education?: No Please select the resources that you would like help with: None Currently or been in a relationship where the following occur: No concerns reported THRIVE Score: 0 AUDIT C Alcohol Use Questionnaire (AUDIT-C) 1. How often do you have a drink containing alcohol?: Monthly or less 2. How many drinks containing alcohol do you have on a typical day when you are drinking?: 1 or 2 3. How often do you have six or more drinks on one occasion?: Never Total Score: 1 PREETHI-7 AMB Questionnaire PREETHI-7 Date PREETHI - 7 assessed: 07/19/24 Feeling nervous, anxious, or on edge: 0 = Not at all Not being able to stop or control worryin = Not at all Worrying too much about different things: 0 = Not at all Trouble relaxin = Not at all Being so restless that it is hard to sit still: 0 = Not at all Becoming easily annoyed or irritable: 0 = Not at all Feeling afraid as if something awful might happen: 0 = Not at all Total PREETHI-7 score (0-4 normal; 5-9 mild; 10-14 moderate; 15-21 severe): 0 Source: Developed by Drs. Brian Sood, Meena Richmond, Julius Lewis and colleagues, with an educational matias from [employer]. PREETHI-7 Assessment Billing PREETHI-7 Assessment Tool: PREETHI-7 Assessment 66877 Review of Systems Const All systems reviewed & are unremarkable except as noted in HPI and below Eyes Reports no additional complaints ENT Reports no additional complaints Card Reports no additional complaints Resp Reports no additional complaints GI Reports no additional complaints Reports no additional complaints Physical exam (Primary Care) Vital Signs: Last Vital Signs Pulse 75 07/19/24 08:07 BP 124/78 07/19/24 08:07 Pulse Ox 96 07/19/24 08:07 Oxygen Delivery Method Room Air 07/19/24 08:07 BMI result Body Mass Index 31.5 Tobacco/Smoking Status: Tobacco use Status Tobacco use date assessed 07/19/24 07/19/24 08:13 Patient Tobacco Use Status Never used Tobacco 07/19/24 08:13 e-Cigarette/Vaping Use Never Used 07/19/24 08:13 PHQ-9: PHQ-9 Score PHQ-9: Total score 0 07/19/24 08:20 Depression Screening Interpretation: Negative Thrive Assessment: Date of Thrive Assessment Date Thrive assessed 07/19/24 07/19/24 08:20 Currently or been in a relationship where the following occur: No concerns reported Const General: no acute distress HENMT Head: Yes normal to inspection Ears: hearing grossly normal bilaterally General nose exam: Normal external nose present Face and sinus: Yes normal facial exam Mouth: Normal oral and palatal mucosa present Throat: Yes posterior oropharynx normal Eyes General: appearance normal, both eyes and all related structures Neck Neck: Yes no lymphadenopathy and Yes supple Resp Effort & Inspection: normal respiratory effort Auscultation: clear to auscultation bilaterally Cardio Rhythm: regular rhythm Heart sounds: S1 normal heart sound present and S2 normal heart sound present GI Inspection: Yes normal to inspection Percussion: Yes normal to percussion Auscultation: normal bowel sounds Coding Level of Care Code Est Pt Prev Care >65y(55335) Diagnoses HTN (hypertension) I10 Annual physical exam Z00.00 Additional Codes PREETHI-7 Assessment Billing - PREETHI-7 Assessment Tool: PREETHI-7 Assessment 32755 ([id number]) PHQ-9 - 80707 - PHQ-9 Billing: Yes ([id number]) Assessment & Plan Assessment & Plan (1) HTN (hypertension): Comment: Lisinopril caused cough Code(s): I10 - Essential (primary) hypertension Category: Medical Plan: cont Amlodipine (2) Annual physical exam: Code(s): Z00.00 - Encounter for general adult medical examination without abnormal findings Category: Medical Plan: Well-balanced diet regular physical activity discussed with the patient she is up-to-date with the mammogram and colonoscopy, physical in 1 year with a fasting labs before Orders: Orders Comprehensive [place]. Panel Fast 1 Year I10 - Essential (primary) hypertension, Z00.00 - Encounter for general adult medical examination without abnormal findings Vitamin D 25-OH Total 1 Year E55.9 - Vitamin D deficiency, unspecified, I10 - Essential (primary) hypertension, Z00.00 - Encounter for general adult medical examination without abnormal findings TSH reflex Free T4 1 Year I10 - Essential (primary) hypertension, Z00.00 - Encounter for general adult medical examination without abnormal findings Complete Blood Count Auto Diff 1 Year I10 - Essential (primary) hypertension, Z00.00 - Encounter for general adult medical examination without abnormal findings Lipid Panel 1 Year I10 - Essential (primary) hypertension, Z00.00 - Encounter for general adult medical examination without abnormal findings Medications: Refilled amlodipine 5 mg PO DAILY 90 tabs 3RF
== END 2024-07-19 08:42 | disposition home or self-care (01) ==
PROVIDERS: PCP Internal Medicine; Visit Provider Internal Medicine
DX: I10 Essential (primary) hypertension (principal); Z00.00 Encounter for general adult medical examination without abnormal findings

== ENCOUNTER → 2024-07-19 07:56 | Outpatient (BNVA) | payer OTHER, SELFPAY | PROVIDERS: PCP Internal Medicine; Visit Provider Internal Medicine | DX: Z00.00 Encounter for general adult medical examination without abnormal findings (principal); I10 Essential (primary) hypertension | CPT/HCPCS: 96127 ==

== ENCOUNTER 2025-07-16 08:20 | Outpatient (REF) | payer OTHER, SELFPAY ==
--- NOTE | ~2025-07-16 | XR_ITS ---
CLINICAL HISTORY: Cough. 2 view chest x-ray Comparison: None provided Findings: No consolidation or effusion. No pneumothorax Heart size is normal. No acute fracture. IMPRESSION: 1. No acute findings. This document has been electronically signed by: Dimitrios Renner MD on 07/16/2025 09:54:51
--- OUTSIDE RECORDS SUMMARY | 2025-07-16 08:23 | XMS_ITS | Clinical Summary ---
Author Organization [facility] Address [address] [place] [address] Phone Care Team Providers Care Sign Builder Name Role Phone Zoya Gaitan MD Primary Care Provider [phone] Family History Medical History Relation Name Comments Breast cancer Neg Hx Social History Tobacco Use Types Packs/Day Years Used Date Smoking Tobacco: Never Assessed Comments No Sex and Gender Information Value Date Recorded Sex Assigned at Not on file Legal Sex Female 7:51 AM EST Gender Identity Not on file Sexual Orientation Not on file Obstetrics History Para Term AB IAB SAB Ectopic Multiple Livin g Live Births 1 Last Filed Vital Signs Vital Sign Reading Time Taken Comments Blood Pressure - - Pulse - - Temperature - - Respiratory Rate - - Oxygen Saturation - - Inhaled Oxygen Concentration - - Weight 89.8 kg (198 lb) 07/13/2024 4:23 PM EST Height 167.6 cm (5' 6 ) 07/13/2024 4:23 PM EST Body Mass Index 31.96 07/13/2024 4:23 PM EST Plan of Treatment Upcoming Encounters Date Type Department Care Team (Late st Contact Info) Description 07/18/2025 4:30 PM EST [facility]ointment [facility] [address] [address] Health Maintenance Due Date Last Done Comments Pneumococcal Vaccine: 50+ Years (1 of 1 - PCV) 2006 Zoster Vaccines (1 of 2) 2006 Hepatitis B Vaccines (3 of 3 - 19+ 3-dose series) 04/15/2017 01/26/2017, 10/16/2016 Falls Risk Assessment 07/28/2022 Hepatitis C Screening 07/28/2022 Social Influencers of Health Screening 07/28/2022 Depression Screening 08/25/2024 COVID-19 Vaccine ( season) 2025 06/23/2023, 12/21/2021, 06/22/2021, Additional history exists Influenza Vaccine (#1) 2025 3, 07/20/2022, 08/19/2021, Additional history exists Breast Cancer Screening 07/13/2026 07/13/20 24, 07/11/2023, 07/05/2022, Additional history exists DTaP,Tdap,and Td Vaccines (3 - Td or Tdap) 10/16/2026 10/16/2016, 08/06/2013 Colorectal Cancer Screening: Colonoscopy 02/27/2027 02/27/2017 Osteoporosis Screening (Bone Density Screening) 05/25/2029 05/25/2019 RSV Immunization Adult Patients Completed 08/02/2023 HIB Vaccines Aged Out No longer eligi ble based on patient's age to complete this topic HPV Vaccines Aged Out No longer eligi ble based on patient's age to complete this topic Hepatitis A Vaccines Aged Out No long er eligible based on patient's age to complete this topic IPV Vaccines Aged Out No longer eligi ble based on patient's age to complete this topic MMR Vaccines Aged Out No longer eligi ble based on patient's age to complete this topic Meningococcal ACWY Vaccine Aged Out N o longer eligible based on patient's age to complete this topic Meningococcal B Vaccine Aged Out No l onger eligible based on patient's age to complete this topic RSV Immunization Patients Under 20 months Aged Out No longer eligible based on patient's age to complete this topic Varicella Vaccines Aged Out No longer eligible based on patient's age to complete this topic Procedures Procedure Name Priority Date/Time Associated Diagnosis Comments MG MAMMO DIGITAL SCREENING W BLAYNE BILAT Routine 07/13/2024 4:40 PM EST Encounter for screening mammogram for breast cancer ADRIAN DEXA AXIAL SKELETON Routine 05/25/2019 8:40 AM EDT Encounter for screening for osteoporosis EXTERNAL COLONOSCOPY REPORT Routine 02/27/2017 1:52 PM EDT from Last 3 Months or Most Recently Relevant to Health Maintenance Results * MG Mammo Digital Screening w Blayne bilat (07/13/2024 4:40 PM EST) Anatomical Region Laterality Modality Breast Bilateral Mammography 07/13/2024 5:20 PM EST Impressions 07/13/2024 5:20 PM EST Stable mammographic appearance of the breasts. No evidence of malignancy is seen. A negative mammogram in the presence of a clinically suspicious palpable abnormality does not preclude the possibility of malignancy or alter the indications for biopsy. BI-RADS CATEGORY: 1 - NEGATIVE RECOMMENDATION: Screening bilateral mammogram is recommended in 1 year. Mammo Location: [facility], [address] [place] [address], [address], . -------- FINAL REPORT -------- Dictated By: Katarina Moore Dictated Date: 07/13/2024 17:20 ET Assigned Physician: Katarina Moore Reviewed and Electronically Signed By: Katarina Moore Signed Date: 07/13/2024 17:20 ET Workstation ID: [id number] Transcribed By: Self Edit Transcribed Date: 07/13/2024 17:20 ET Narrative 07/13/2024 5:20 PM EST HISTORY: Screening. COMPARISON: 07/18/23, 07/11/23, 07/04/22, 08/03/21, 07/21/20 TECHNIQUE: Bilateral digital breast tomosynthesis was performed in the CC and MLO projections. Computer aided detection with RetiDiag 3D 3.1 was employed. BREAST DENSITY: B - There are scattered areas of fibroglandular density. FINDINGS: No suspicious masses, grouped microcalcifications, or areas of architectural distortion are seen. The skin and vascularity are unremarkable. Procedure Note Katarina Moore MD - 07/13/2024 HISTORY: Screening. COMPARISON: 07/18/23, 07/11/23, 07/04/22, 08/03/21, 07/21/20 TECHNIQUE: Bilateral digital breast tomosynthesis was performed in the CCand MLO projections. Computer aided detection with RetiDiag 3D 3.1was employed. BREAST DENSITY: B - There are scattered areas of fibroglandular density. FINDINGS: No suspicious masses, grouped microcalcifications, or areas ofarchitectural distortion are seen. The skin and vascularity areunremarkable. IMPRESSION: Stable mammographic appearance of the breasts. No evidence of malignancyis seen. A negative mammogram in the presence of a clinically suspicious palpableabnormality does not preclude the possibility of malignancy or alter theindications for biopsy. BI-RADS CATEGORY: 1 - NEGATIVE RECOMMENDATION: Screening bilateral mammogram is recommended in 1 year. Mammo Location: [facility], [address] [place] [address], [address], . -------- FINAL REPORT -------- Dictated By: Katarina Moore Dictated Date: 07/13/2024 17:20 ET Assigned Physician: Katarina Moore Reviewed and Electronically Signed By: Katarina Moore Signed Date: 07/13/2024 17:20 ET Workstation ID: [id number] Transcribed By: Self Edit Transcribed Date: 07/13/2024 17:20 ET us Zoya Gaitan MD IMG BI PROCEDURES Final Resul t * ADRIAN DEXA AXIAL SKELETON (05/25/2019 8:40 AM EDT) Anatomical Region Laterality Modality Mammography 05/24/2019 3:01 PM EDT Narrative 05/25/2019 8:40 AM EDT [facility] Diagnostic Imaging Department [address] [place] [address] Patient: RONALD SARMIENTO./Age/Sex: 1955 - 64 - F Unit#: [id number] Location/Status: SPDIMAM/REG CLI Mnemonic/Ordering Site: MAMDEXAAX/SPMAM Ordering Physician: ZOYA GAITAN MD Adrian Dexa Axial Skeleton - 05/24/191535 HISTORY: The patient is a 64-year-old postmenopausal female with clinical concern for metabolic bone disease. FINDINGS: Dual energy x-ray absorptiometry of the lumbar spine and femurs is performed. The mean bone mineral density at L1-3 is 1.234 gm/cm2 which is 106% of that of young normals and 113% of that of age matched controls. This yields a T-score of 0.5 and a Z-score of 1.2 and there is therefore no evidence of osteoporosis or osteopenia here. The mean bone mineral density of the femurs bilaterally is 0.972 gm/cm2 which is 96% of that of young normals and 104% of that of age matched controls. This yields a T-score of -0.3 and a Z-score of 0.3 and there is therefore no evidence of osteoporosis or osteopenia here. However, the T-score of the right femoral neck is -1.8 and that of the left femoral neck is -1.5 which is diagnostic of osteopenia. IMPRESSION: 1. Osteopenia. 2. FRAX analysis yields a 10-year probability of major osteoporotic fracture of 9.2% and a 10-year probability of hip fracture of 1.1%. Code 79990 Dictating Physician: IVANA HAYWOOD MD Electronically Signed by: IVANA HAYWOOD MD Dic Date/Time: 05/25/19838 Sign date/Time: 05/25/19839 Procedure Note Ivana Haywood - 08/13/2022 [facility] Diagnostic Imaging Department [address] [place] [address] Patient: RONALD SARMIENTO /Age/Sex: 1955 - 64 -F Unit#: [id number] [facility] Mn[facility]onic/Ordering Site: MAMDEXAAX/SPMAM Ordering Physician: ZOYA GAITAN MD [facility] Dexa Axial Skeleton - 05/24/191535 HISTORY: The patient is a 64-year-old postmenopausal female withclinical concern for metabolic bone disease. FINDINGS: Dual energy x-ray absorptiometry of the lumbar spine and femursis performed. The mean bone mineral density at L1-3 is 1.234 gm/cm2 which is106% of that of young normals and 113% of that of age matched controls. Thisyields a T-score of 0.5 and a Z-score of 1.2 and there is therefore no evidenceof osteoporosis or osteopenia here. The mean bone mineral density of the femurs bilaterally is 0.972 gm/zz7mxovj is 96% of that of young normals and 104% of that of age matched controls.This yields a T-score of -0.3 and a Z-score of 0.3 and there is therefore noevidence of osteoporosis or osteopenia here. However, the T-score of the rightfemoral neck is -1.8 and that of the left femoral neck is -1.5 which is diagnosticof osteopenia. IMPRESSION: 1. Osteopenia. 2. FRAX analysis yields a 10-year probability of major osteoporoticfracture of 9.2% and a 10-year probability of hip fracture of 1.1%. Code 59068 Dictating Physician: IVANA HAYWOOD MD Electronically Signed by: IVANA HAYWOOD MD Dic Date/Time: 05/25/19838 Sign date/Time: 05/25/19839 Zoya Gaitan MD IMG BI PROCEDURES Final Resul t * External Colonoscopy Report (02/27/2017 1:52 PM EDT) Anatomical Region Laterality Modality Endoscopy Historical Provider GI~PROCEDURE ORDERABLES F inal Result from Last 3 Months or Most Recently Relevant to [place] [id number] [facility] Care Teams Sign Builder Relationship Specialty Start Date End Date Zoya Gaitan MD PCP - General Internal Medicine 09/08/14
--- OUTSIDE RECORDS SUMMARY | 2025-07-16 08:23 | XMS_ITS | Patient Health Record ---
Author Organization [facility] Address [address] [place] [address] Care Team Providers Care Slip Tender Name Role Phone Zoya Gaitan MD Primary Care Provider Unavaila Brenden Meek Unavailable [phone] Reason For Referral No Information Medications Medication SIG (Take, Route, Frequency, Duration) Notes Start Date End Date Status Night Splint AFO - L1930 as directed 10/02/2016 Active Lisinopril 5 MG Orally 10/02/2016 Act fabiola Multivitamin Adult - Orally 10/02/2016 Active Fish Oil Active Social History Tobacco use other than smoking: Question Answer Notes Are you an other tobacco user? No Problems Problem Type SNOMED Code ICD Code Onset Dates Problem Status W/U Status Risk Notes Problem Plantar fascial fibromatosis (99675881) Plantar fascial fibromatosis (M72.2) Active confirmed Plan Of Treatment Pending Test Test Name Order Date ,D0088-XLC TENDON SHEATH/LIGAMENT 0 11/11/2016 Insurance Providers Payer Name Payer Address Payer Phone Subscriber Number Group Number Insured Name Patient Relationship to Insured Coverage Start Date Coverage End Date [facility] re-[id number] [id number] [place] [address] [id number] Xin Fajardo Self - patient is the insured Medical (General) History Medical History History ICD Code High blood pressure Surgical History Surgery Date(Month/Year) appendectomy 1962 section 1981 Hospitalization History Reason Date(Month/Year) [facility] Left Foot 09/26/16
[2025-07-16 11:05] LABS: MANUAL DIFF FLAG NO
[2025-07-16 11:14] LABS: Hematocrit 41.5 % (37.0-47.0); Hemoglobin 14.3 g/dl (12.0-16.0); Imm Gran Abs Auto 0.02 X10*3/uL (0.00-0.03); Imm Gran Pct Auto 0.4 % (0.0-0.4); Lymphocytes Absolute Auto 2.5 X10*3/uL (1.2-4.9); Mean Corpuscular HGB Conc 34.5 g/dl (31.0-35.0); Mean Corpuscular Hemoglobin 31.3 pg (27.0-33.0); Mean Corpuscular Volume 90.8 fL (80.0-98.0); NRBC Abs Auto 0.000 X10*3/uL (0.0-0.012); NRBC Pct Auto 0.0 /100WBC (0.0-0.2); Platelet Count 227 X10*3/uL (160-400); Red Blood Count 4.57 X10*6/uL (4.20-5.50); White Blood Count 5.4 X10*3/uL (4.8-10.8)
[2025-07-16 11:42] LABS: Alanine Aminotransferase 27 U/L (0-31); Albumin Level 4.3 g/dL (3.5-5.0); Alkaline Phosphatase 81 U/L (39-117); Anion Gap 9 (12-20); Aspartate Amino Transferase 28 U/L (5-31); Blood Urea Nitrogen 16 mg/dL (9-16); Calcium 9.0 mg/dL (8.4-10.2); Carbon Dioxide 27 mmol/L (22-29); Chloride 109 mmol/L (96-108); Cholesterol 218 mg/dL (<200); Estimated Glomerular Filt Rate > 60; HDL Cholesterol 65 mg/dL (>40); Potassium 4.1 mmol/L (3.3-5.1); Sodium 141 mmol/L (135-145); Total Protein 6.9 g/dL (6.5-8.0); Triglycerides 100 mg/dL (<150)
[2025-07-16 12:15] LABS: Resp Syncy Virus RNA Qual PCR NEGATIVE (Negative); SARS COV2 PCR INHOUSE NEGATIVE (Negative)
== END 2025-07-16 08:21 | disposition home or self-care (01) ==
LOC: HO.CHCLDS 08:20
PROVIDERS: Family Medicine; PCP Internal Medicine; Visit Provider Internal Medicine
DX: Z00.00 Encounter for general adult medical examination without abnormal findings (principal); I10 Essential (primary) hypertension; E55.9 Vitamin D deficiency, unspecified; R05.9 Cough, unspecified; B34.9 Viral infection, unspecified; Z03.818 Encounter for observation for suspected exposure to other biological agents ruled out
CPT/HCPCS: 36415; 71046; 80053; 80061; 82306; 84443; 85025; 87637

== ENCOUNTER 2025-07-16 09:09 | Outpatient (AMB) | payer OTHER, SELFPAY ==
--- NOTE | 2025-07-16 09:09 | AM.OFFWIN_ITS ---
Intake Vital Signs 07/16/25 09:10 Height 5 ft 6 in Weight 193 lb BMI 31.1 BP 126/84 Blood Pressure Location Rt brachial Position Sitting Respiration 16 Pulse 64 Pulse Source Pulse Oximeter Temp 97.4 F Temp Source Oral Pulse Oximetry (%) 96 Oxygen Delivery Method Room Air Intake Visit Reasons: EP- cough/ Was out of EU 1M ago Intake Note: Pt is here today c/o cough Patient Tobacco Use Status: Never used Tobacco Allergies Lisinopril Adverse Reaction (Intermediate, Uncoded 07/16/25 09:13) Cough Medication List - Last Reconciled 07/16/25 by Juan Watson MD amlodipine 5 mg PO DAILY HPI EP- cough/ Was out of EU 1M ago HPI Details Patient presents with concerns regarding cough which she has had for several weeks. She says she had visited your with her and he had got sick with a co [facility]. His illness resolved and she says she began having symptoms at the end of their trip. She had rhinitis and cough. No fever or chills. Still has intermittent coughing with some lower chest discomfort during cough [facility] Medical History (Updated 10/18/24 @ 10:28 by Zoya Gaitan MD) Allergic rhinitis Annual physical exam GERD (gastroesophageal reflux disease) HTN (hypertension) Surgical History H/O colonoscopy No pertinent past surgical history Family History Father Diabetes mellitus Mother No problems noted. Social History Housing: House Alcohol intake: current Alcohol intake frequency: holidays/special occasions only Patient Tobacco Use Status: Never used Tobacco e-Cigarette/Vaping Use: Never Used Second Hand Smoke Exposure: No service: No Current occupational status: employed Cognitive needs: No Hearing needs: No Vision needs: Yes Review of Systems Const Denies chills, Denies fatigue, Denies fever(s), Denies headache(s) and Denies weakness ENT Denies dizziness and Denies headache(s) Card Denies chest pain, Denies lightheadedness, Denies dyspnea and Denies other (Palpitations) Resp Denies cough, Denies dyspnea, Denies wheezing and Denies other ( shortness of breath) Musc Denies numbness and Denies tingling Neuro Denies dizziness, Denies headache(s), Denies numbness, Denies tingling, Denies paresthesias and Denies weakness Psych Denies anxiety and Denies depression Endo Denies fatigue Aller/Immun Denies wheezing Physical Exam Vital Signs: Last Vital Signs Temp 97.4 F 07/16/25 09:10 Pulse 64 07/16/25 09:10 Resp 16 07/16/25 09:10 BP 126/84 07/16/25 09:10 Pulse Ox 96 07/16/25 09:10 Oxygen Delivery Method Room Air 07/16/25 09:10 BMI result Body Mass Index 31.1 Const General: no acute distress and well developed Nutritional Appearance: well nourished Orientation/consciousness: patient oriented x3 HEENT Head: Yes normocephalic and Yes atraumatic Eyes General: appearance normal, both eyes and all related structures Pupils: Equal, round and reactive pupils present EOM: EOMs intact bilaterally Resp Other: Mildly coarse breath sounds throughout but otherwise clear to auscultation in all lung ortega Effort & Inspection: normal respiratory effort Cardio Rate: regular rate Rhythm: regular rhythm Heart sounds: S1 normal heart sound present, S2 normal heart sound present, no gallops, no murmurs and no rubs Neuro General: patient oriented x3 and gait normal Cranial nerves: Yes Equal, round and reactive pupils present Psych Affect: normal affect Assessment & Plan Assessment & Plan (1) Cough: Code(s): R05.9 - Cough, unspecified Plan: mildly coarse breath sounds but otherwise clear throughout lung ortega chest x-ray negative Likely resolving Viral illness There is no antibiotic medication for viruses. They must run their course. Most average 5-7 days but 7-10 days is not uncommon and up to 14 days is still possible. A cough is often the last symptom to resolve and this can last for weeks in some cases. Rest Hydrate well - Drink plenty of fluids. Especially water. Tylenol or ibuprofen for muscle aches, headache, fever/discomfort Can use gotj-dzp-bybxhee medications for cough such as Delsym or DayQuil. Prescription cough medicines have been shown to be no better. Can not rule out COVID/ flu / RSV and will send nasal swab to the lab She has also had allergic rhinitis in the past. She has been given an albuterol nebulizer at home previously. Will give her a Ventolin inhaler which she can use for cough symptoms over the next 2 weeks. Should continue to improve and resolve. Orders: Orders SARS-CoV2/FLU/RSV Today B34.9 - Viral infection, unspecified XR chest 2V Today R05.9 - Cough, unspecified Coding Level of Care Code Est Pt Level 3 (69939) Diagnoses Cough R05.9
[2025-07-16 09:10] VITALS: BP 126/84; PULSE 64; RESP 16; TEMP 36.3; O2SAT 96; BMI 31.1
== END 2025-07-16 09:44 | disposition home or self-care (01) ==
LOC: HO.HMCWIC 09:09
PROVIDERS: PCP Internal Medicine; Visit Provider Family Medicine
DX: R05.9 Cough, unspecified (principal)

== ENCOUNTER → 2025-07-16 09:27 | Outpatient (BNV) | payer OTHER, SELFPAY | PROVIDERS: PCP Internal Medicine; Visit Provider Radiology Diagnostic Radiology | DX: R05.9 Cough, unspecified (principal) | CPT/HCPCS: 71046 ==

== ENCOUNTER 2025-07-27 07:50 | Outpatient (AMB) | payer OTHER, SELFPAY ==
--- OUTSIDE RECORDS SUMMARY | 2025-07-27 07:56 | XMS_ITS | Clinical Summary ---
Author Organization [facility] Address [address] [place] [address] Phone Care Team Providers Care Ergonomic Specialist Name Role Phone Zoya Gaitan MD Primary Care Provider [phone] Encounters Date Type Department Care Team Description 07/18/2025 4:24 PM EST - 07/18/2025 11:59 PM EST [facility] [address] [address] Encounter for screening mammogram for malignant neoplasm of breast Discharge Disposition: Home or Self Care from Last 3 Months Family History Medical History Relation Name Comments [...] 07/13/2024 4:23 PM EST Plan of Treatment Health Maintenance Due Date Last Done Comments Pneumococcal Vaccine: 50+ Years (1 of 1 - PCV) 2006 Zoster Vaccines (1 of 2) 2006 Hepatitis B Vaccines (3 of 3 - 19+ 3-dose series) 04/15/2017 01/26/2017, 10/16/2016 Falls Risk Assessment 07/28/2022 Hepatitis C Screening 07/28/2022 Social Influencers of Health Screening 07/28/2022 Depression Screening 08/25/2024 COVID-19 Vaccine ( season) 2025 07/17/2024, 06/23/2023, 12/21/2021, Additional history exists Influenza Vaccine (#1) 2025 , 06/23/2023, 07/20/2022, Additional history exists DTaP,Tdap,and Td Vaccines (3 - Td or Tdap) 10/16/2026 10/16/2016, 08/06/2013 Colorectal Cancer Screening: Colonoscopy 02/27/2027 02/27/2017 Breast Cancer Screening 07/18/2027 07/18/20, 07/13/2024, 07/11/2023, Additional history exists Osteoporosis Screening (Bone Density Screening) 05/25/2029 05/25/2019 [...] MAMMO DIGITAL SCREENING W BLAYNE BILAT Routine 07/18/2025 4:35 PM EST Encounter for screening mammogram for malignant neoplasm of breast ADRIAN DEXA AXIAL SKELETON Routine 05/25/2019 8:40 AM EDT Encounter for screening for osteoporosis EXTERNAL COLONOSCOPY REPORT Routine 02/27/2017 1:52 PM EDT from Last 3 Months or Most Recently Relevant to Health Maintenance Results * MG Mammo Digital Screening w Blayne bilat (07/18/2025 4:35 PM EST) Anatomical Region Laterality Modality Breast Bilateral Mammography 07/18/2025 4:42 PM EST Impressions 07/18/2025 4:48 PM EST No mammographic evidence of malignancy. No suspicious interval change. A negative mammogram in the presence of a clinically suspicious palpable abnormality does not preclude the possibility of malignancy or alter the indications for biopsy. ASSESSMENT: BI-RADS 1: NEGATIVE RECOMMENDATION(S): 1: Routine screening mammogram BILATERAL in 1 year. [facility] location[facility] [address], [address] -------- FINAL REPORT -------- Dictated By: Angelito Araiza Dictated Date: 07/18/2025 16:42 ET Assigned Physician: Angelito Araiza Reviewed and Electronically Signed By: Angelito Araiza Signed Date: 07/18/2025 16:48 ET Workstation ID: [id number] Transcribed By: Self Edit Transcribed Date: 07/18/2025 16:42 ET Narrative 07/18/2025 4:48 PM EST EXAM: SCREENING MAMMOGRAPHY, BILATERAL HISTORY: SCREENING. No additional history. COMPARISON: 07/13/24, 07/18/23, 07/11/23, 07/04/22, 08/03/21, 07/21/20 TECHNIQUE: Synthesized CC and MLO projections of each breast. Tomosynthesis of each breast in the CC and MLO projections. ADDITIONAL IMAGING: None Computer-aided detection was employed with the SiftyNet AI 3-D. TISSUE DENSITY: There are scattered areas of fibroglandular density. (BI-RADS category B) FINDINGS: RIGHT BREAST: No suspicious mass. No suspicious calcification. No distortion. No additional suspicious right breast findings LEFT BREAST: No suspicious mass. No suspicious calcification. No distortion. No additional suspicious left breast findings Procedure Note Angelito Araiza MD - 07/18/2025 EXAM: SCREENING MAMMOGRAPHY, BILATERAL HISTORY: SCREENING. No additional history. COMPARISON: 07/13/24, 07/18/23, 07/11/23, 07/04/22, 08/03/21, 07/21/20 TECHNIQUE: Synthesized CC and MLO projections of each breast.Tomosynthesis of each breast in the CC and MLO projections. ADDITIONAL IMAGING: None Computer-aided detection was employed with the iCAD ProFound AI 3-D. TISSUE DENSITY: There are scattered areas of fibroglandular density.(BI-RADS category B) FINDINGS: RIGHT BREAST: No suspicious mass. No suspicious calcification. No distortion. Noadditional suspicious right breast findings LEFT BREAST: No suspicious mass. No suspicious calcification. No distortion. Noadditional suspicious left breast findings IMPRESSION: No mammographic evidence of malignancy. No suspicious interval change. A negative mammogram in the presence of a clinically suspicious palpableabnormality does not preclude the possibility of malignancy or alter theindications for biopsy. ASSESSMENT: BI-RADS 1: NEGATIVE RECOMMENDATION(S): 1: Routine screening mammogram BILATERAL in 1 year. [facility] location: [facility] [address] [place], [address] -------- FINAL REPORT -------- Dictated By: Angelito Araiza Dictated Date: 07/18/2025 16:42 ET Assigned Physician: Angelito Araiza Reviewed and Electronically Signed By: Angelito Araiza Signed Date: 07/18/2025 16:48 ET Workstation ID: [id number] Transcribed By: Self Edit Transcribed Date: 07/18/2025 16:42 ET us Zoya Gaitan MD IMG BI PROCEDURES Final Resul t * ADRIAN DEXA AXIAL SKELETON (05/25/2019 8:40 AM EDT) Anatomical Region Laterality Modality Mammography 05/24/2019 3:01 PM EDT Narrative 05/25/2019 8:40 AM EDT [facility] Diagnostic Imaging Department [address] [place] [address] Patient: RONALD SARMIENTO /Age/Sex: 1955 - 64 - F Unit#: [id number] Location/Status: SPDIMAM/REG CLI Mnemonic/Ordering Site: MAMDEXAAX/SPMAM Ordering Physician: ZOYA GAITAN MD [facility] Dexa Axial Skeleton - 05/24/191535 HISTORY: The [...] probability of hip fracture of 1.1%. Code 57137 Dictating Physician: IVANA HAYWOOD MD Electronically Signed by: IVANA HAYWOOD MD Dic Date/Time: 05/25/19838 Sign date/Time: 05/25/19839 Procedure Note Ivana Haywood - 08/13/2022 [facility] Diagnostic Imaging Department [address] [place] [address] Patient: GUILLERMINARONALD./Age/Sex: 1955 - 64 -F Unit#: [id number] [facility] Ordering Physician: ZOYA GAITAN MD Adrian Dexa [...] density of the femurs bilaterally is 0.972 gm/ae1tdiny is 96% of that of young normals [...] probability of hip fracture of 1.1%. Code 04848 Dictating Physician: IVANA HAYWOOD MD Electronically Signed by: IVANA HAYWOOD MD Dic Date/Time: 05/25/19838 Sign date/Time: 05/25/19839 Zoya Gaitan MD IMG BI PROCEDURES Final Resul t * External Colonoscopy Report (02/27/2017 1:52 PM EDT) Anatomical Region Laterality Modality Endoscopy Historical Provider GI~PROCEDURE ORDERABLES F inal Result from Last 3 Months or Most Recently Relevant to [place] [id number] [facility] Care Teams Ergonomic Specialist Relationship Specialty Start Date End Date Zoya Gaitan MD PCP - General Internal Medicine 09/08/14
[2025-07-27 08:09] VITALS: BP 124/70; PULSE 68; RESP 17; TEMP 36.8; O2SAT 96; BMI 32.0
--- NOTE | 2025-07-27 08:09 | A.OFFPC_ITS ---
Vital Signs 07/27/25 08:09 Height 5 ft 6 in Weight 198 lb BMI 32.0 BP 124/70 Blood Pressure Location Lt brachial Position Sitting Respiration 17 Pulse 68 Pulse Source Pulse Oximeter Temp 98.2 F Temp Source Oral Pulse Oximetry (%) 96 Oxygen Delivery Method Room Air Intake Visit Reasons: PE Intake Note: Pt is here today for PE. Allergies Lisinopril Adverse Reaction (Intermediate, Uncoded 07/27/25 08:12) Cough Medication List - Last Reconciled 07/27/25 by Zoya Gaitan MD amlodipine 5 mg PO DAILY Tobacco use date assessed: 07/27/25 Fall risk assessment: No Falls in past year Last assessed Fall Risk: 07/27/25 Dental Screening Dental Screen Date: 07/27/25 Did you have a dental visit in the last 12 months?: Yes Did you have a dental problem in the last 6 months where you did not have access to dental care?: No Was dental information given to patient?: Patient has dentist HPI PE HPI Details Pt presents for PE. [facility] Medical History (Updated 07/27/25 @ 08:41 by Zoya Gaitan MD) Allergic rhinitis Annual physical exam GERD (gastroesophageal reflux disease) HTN (hypertension) Surgical History H/O colonoscopy No pertinent past surgical history Family History Father Diabetes mellitus Mother No problems noted. Social History Housing: House Alcohol intake: current Alcohol intake frequency: holidays/special occasions only Patient Tobacco Use Status: Never used Tobacco e-Cigarette/Vaping Use: Never Used Second Hand Smoke Exposure: No service: No Current occupational status: employed Cognitive needs: No Hearing needs: No Vision needs: Yes Questionnaire PHQ-9 Over the last 2 weeks, how often have you been bothered by any of the following problems? 1. Little interest or pleasure in doing things: not at all 2. Feeling down, depressed, or hopeless: not at all 3. Trouble falling or staying asleep, or sleeping too much: not at all 4. Feeling tired or having little energy: not at all 5. Poor appetite or overeating: not at all 6. Feeling bad about yourself - or that you are a failure or have let yourself or your family down: not at all 7. Trouble concentrating on things, such as reading the newspaper or watching television: not at all 8. Moving or speaking so slowly that other people could have noticed. Or the opposite - being so fidgety or restless that you have been moving around a lot more than usual: not at all 9. Thoughts that you would be better off or of hurting yourself in some way: not at all Total score: 0 Depression Screening Interpretation: Negative Depression Screening Done: Yes 77540 - PHQ-9 Billing: Yes Source: Developed by Drs. Brian Sood, Meena Richmond, Julius Lewis and colleagues, with an educational matias from [employer]. Thrive Questionnaire Date Thrive assessed: 07/27/25 I am a: Patient What is your living situation today?: I have a steady place to live Within the past 12 months, did the food you bought not last and you didn't have the money to get more?: Never true Within the past 12 months, did you worry whether your food would run out before you got money to buy more?: Never true Do you have trouble paying for medicines?: No Do you have trouble getting transportation to medical appointments?: No Do you have trouble paying your heating and electricity bill?: No Do you have trouble taking care of your child, family member or friend?: No Do you have trouble with day-to-day activities such as bathing, preparing meals, shopping, managing finances, etc.?: No Are you currently unemployed and looking for a job?: No Are you interested in more education?: No Please select the resources that you would like help with: None Currently or been in a relationship where the following occur: No concerns reported THRIVE Score: 0 AUDIT C Alcohol Use Questionnaire (AUDIT-C) 1. How often do you have a drink containing alcohol?: Monthly or less 2. How many drinks containing alcohol do you have on a typical day when you are drinking?: 1 or 2 3. How often do you have six or more drinks on one occasion?: Never Total Score: 1 PREETHI-7 AMB Questionnaire PREETHI-7 Date PREETHI - 7 assessed: 07/27/25 Feeling nervous, anxious, or on edge: 0 = Not at all Not being able to stop or control worryin = Not at all Worrying too much about different things: 0 = Not at all Trouble relaxin = Not at all Being so restless that it is hard to sit still: 0 = Not at all Becoming easily annoyed or irritable: 0 = Not at all Feeling afraid as if something awful might happen: 0 = Not at all Total PREETHI-7 score (0-4 normal; 5-9 mild; 10-14 moderate; 15-21 severe): 0 Source: Developed by Drs. Brian Sood, Meena Richmond, Julius Lewis and colleagues, with an educational matias from [employer]. PREETHI-7 Assessment Billing PREETHI-7 Assessment Tool: PREETHI-7 Assessment 07307 Review of Systems Const All systems reviewed & are unremarkable except as noted in HPI and below Eyes Reports no additional complaints ENT Reports no additional complaints Card Reports no additional complaints Resp Reports no additional complaints GI Reports no additional complaints Reports no additional complaints Physical exam (Primary Care) Vital Signs: Last Vital Signs Temp 98.2 F 07/27/25 08:09 Pulse 68 07/27/25 08:09 Resp 17 07/27/25 08:09 BP 124/70 07/27/25 08:09 Pulse Ox 96 07/27/25 08:09 Oxygen Delivery Method Room Air 07/27/25 08:09 BMI result Body Mass Index 32.0 Tobacco/Smoking Status: Tobacco use Status Tobacco use date assessed 07/27/25 07/27/25 08:18 Patient Tobacco Use Status Never used Tobacco 07/27/25 08:10 e-Cigarette/Vaping Use Never Used 07/27/25 08:10 PHQ-9: PHQ-9 Score PHQ-9: Total score 0 07/27/25 08:18 Depression Screening Interpretation: Negative Thrive Assessment: Date of Thrive Assessment Date Thrive assessed 07/27/25 07/27/25 08:18 Currently or been in a relationship where the following occur: No concerns reported Const General: no acute distress HENMT Head: Yes normal to inspection Ears: TM's normal bilaterally Face and sinus: Yes normal facial exam Mouth: Normal oral and palatal mucosa present Eyes General: appearance normal, both eyes and all related structures Neck Neck: Yes no lymphadenopathy and Yes supple Resp Effort & Inspection: normal respiratory effort Auscultation: clear to auscultation bilaterally Cardio Rhythm: regular rhythm Heart sounds: S1 normal heart sound present and S2 normal heart sound present GI Inspection: Yes normal to inspection Palpation (GI): Soft to palpation Percussion: Yes normal to percussion Auscultation: normal bowel sounds Coding Level of Care Code Est Pt Prev Care >65y(16921) Diagnoses HTN (hypertension) I10 Annual physical exam Z00.00 Additional Codes PREETHI-7 Assessment Billing - PREETHI-7 Assessment Tool: PREETHI-7 Assessment 02397 ([id number]) PHQ-9 - 79631 - PHQ-9 Billing: Yes ([id number]) Assessment & Plan Assessment & Plan (1) HTN (hypertension): Comment: Lisinopril caused cough Code(s): I10 - Essential (primary) hypertension Category: Medical Plan: Continue Amlodipine (2) Annual physical exam: Comment: nl DEXA [facility] 2022 Code(s): Z. - Encounter for general adult medical examination without abnormal findings Category: Medical Plan: Well-balanced diet regular physical activity discussed with the patient. She is up-to-date with the mammogram colonoscopy. Patient will return in 1 year Orders: Orders XR DEXA axial skeleton Today Z78.0 - Asymptomatic menopausal state Complete Blood Count Auto Diff 1 Year I10 - Essential (primary) hypertension, Z00.00 - Encounter for general adult medical examination without abnormal findings Vitamin D 25-OH Total 1 Year I10 - Essential (primary) hypertension, Z00.00 - Encounter for general adult medical examination without abnormal findings Comprehensive [place]. Panel Fast 1 Year I10 - Essential (primary) hypertension, Z00.00 - Encounter for general adult medical examination without abnormal findings Lipid Panel 1 Year I10 - Essential (primary) hypertension, Z00.00 - Encounter for general adult medical examination without abnormal findings TSH reflex Free T4 1 Year I10 - Essential (primary) hypertension, Z00.00 - Encounter for general adult medical examination without abnormal findings UA w Microscopic 1 Year I10 - Essential (primary) hypertension, Z00.00 - Encounter for general adult medical examination without abnormal findings Medications: New albuterol sulfate 0.63 mg (3 mL) inhalation Q6H 90 mL 0RF Refilled amlodipine 5 mg PO DAILY 90 tabs 3RF
== END 2025-07-27 08:42 | disposition home or self-care (01) ==
LOC: HO.HMCC 07:51
PROVIDERS: PCP Internal Medicine; Visit Provider Internal Medicine
DX: Z00.00 Encounter for general adult medical examination without abnormal findings (principal); I10 Essential (primary) hypertension

== ENCOUNTER → 2025-07-27 07:50 | Outpatient (BNVA) | payer OTHER, SELFPAY | PROVIDERS: PCP Internal Medicine; Visit Provider Internal Medicine | DX: Z00.00 Encounter for general adult medical examination without abnormal findings (principal); I10 Essential (primary) hypertension | CPT/HCPCS: 96127 ==